=== PATIENT | female | born 1945 | race Caucasian/White ===

== ENCOUNTER 2016-04-28 09:46 | Outpatient (RCR) | payer MEDICARE, OTHER ==
[~2016-04-28 09:46] MED LIST: ACID REDUCER; AMLO10TA82 PO; ASP81TEC PO; BNZ20T PO; CALC480G PO; CYAN10007 PO; CYANOCOBALAMIN PO; DESV50TA PO; HCT25T PO; METO-272 PO; OLME20TA21 PO; OMEG-12 PO; OMEP20TA2 PO; OXYC-12 PO; PNT40TEC PO; ROSU10TA12 PO; VITAMIN B12 COMPLEX PO; VITAMIN D3 PO; [UNRECOGNIZED DRUG - OTHER] SL; vitamin D3
--- OUTSIDE RECORDS SUMMARY | 2016-04-28 09:50 | XMS REPORT | Continuity of Care Document ---
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 Medications Medication Dose Route Sig Days/Qty Instructions Order Date Discontinued Date Status Desvenlafaxine Succinate 50 Mg PO BEDTIME 08/05/12 Active Amlodipine Besylate (Norvasc 10 Mg) 1 Each PO DAILY 08/05/12 Discontinued Benazepril HCl 1 Each PO DAILY 08/05/12 01/16/13 Discontinued Metoprolol Succinate (Toprol Xl) 50 Mg PO BEDTIME 08/05/12 Active Rosuvastatin Calcium 1 Each PO DAILY 08/05/12 11/16/13 Discontinued Pantoprazole Sodium 1 Tab PO DAILY 30 Qty 08/05/12 10/11/12 Discontinued Omeprazole 20 Mg PO 10/11/12 01/16/13 Discontinued Hydrochlorothiazide 25 Mg PO DAILY 10/11/12 11/16/13 Discontinued [vitamin D3] 10/11/12 11/23/13 Discontinued Aspirin 81 Mg PO DAILY 10/11/12 11/16/13 Discontinued Olmesartan 1 Each PO DAILY 01/16/13 11/16/13 Discontinued [otc acid delicate fabrics presser] DAILY 01/16/13 02/06/13 Discontinued [place]-3/Dha/Epa/Fish Oil 1,000 Mg PO BEDTIME 11/16/13 Active Cyanocobalamin 1,000 Mcg PO DAILY 11/16/13 11/23/13 Discontinued [Siblingual B12] 325 Mcg SL DAILY 11/16/13 11/23/13 Discontinued Calcium Citrate 480 Gm PO DAILY 11/16/13 11/23/13 Discontinued [Vitamin D3] 1,200 Mg PO BEDTIME 11/23/13 Active [Cyanocobalamin SL] 325 Mcg PO BEDTIME 11/23/13 Active [Vitamin B12 Complex] 1 Tab PO BEDTIME 11/23/13 Active Oxycodone Hcl/Acetaminophen 1-2 Each PO Q4-6H PRN 35 Qty 11/23/13 Active Social History Social History Problem Response Recorded Date/Time Alcohol Use Denies Use 11/22/2013 6:30pm Recreational Drug Use No 11/22/2013 6:30pm Smoking Status Never a Smoker 11/22/2013 6:55pm Query Response Start Date Stop Date Smoking Status Never a Smoker Hospital Discharge Instructions No hospital discharge instructions. Plan of Care No plan of care. Functional Status No functional status results. Allergies, Adverse Reactions, Alerts Allergen Type Severity Reaction Status Last Updated No Known Drug Allergies Active 08/05/12 Immunizations Name Given Type Date of Pneumonia Vaccine 01/17/12 Historical Date of Influenza Vaccine 12/17/12 Historical Hepatitis A No Historical Hepatitis B No Historical Vital Signs Acute Vital Signs Vital Response Date/Time Temperature (Fahrenheit) 98.7 degrees F (97.6 - 99.5) Temperature (Calculated Celsius) 37.72734 degrees C (36.4 - 37.5) Temperature Source Temporal Pulse Rate (adult) 82 bpm (60 - 90) Respiratory Rate 18 bpm (12 - 24) O2 Sat by Pulse Oximetry 98 % (88 - 100) Blood Pressure 132/61 mm Hg Pain Pain Intensity 3 Height (Feet) 5 feet Height (Inches) 4.00 inches Height (Calculated Centimeters) 162.385937 cm Weight (Pounds) 219 pounds Weight (Calculated Grams) 25958.730 gm Weight (Calculated Kilograms) 99.330041 kilograms Calculated BMI 37.59 Results Test Source Date Result Interp. Ref. Range Comments Activated Partial Thromboplast Time August 05, 2012 2:46pm 27 SEC N 24-35 Alanine Aminotransferase (ALT/SGPT) November 16, 2013 11:10am 28 U/L N 0- 55 Albumin November 16, 2013 11:10am 3.7 G/DL N 3.2-4.5 Alkaline Phosphatase November 16, 2013 11:10am 65 U/L N 40-136 Amylase Level August 05, 2012 2:46pm 53 U/L N 25-115 Aspartate Amino Transf (AST/SGOT) November 16, 2013 11:10am 25 U/L N 5-34 BUN/Creatinine Ratio November 16, 2013 11:10am 19 - Basophils # (Auto) November 16, 2013 11:10am 0.1 10^3/uL N 0.0-0.1 Basophils (%) (Auto) November 16, 2013 11:10am 1 % N 0-10 Blood Urea Nitrogen November 16, 2013 11:10am 15 MG/DL N 7-18 Calcium Level November 16, 2013 11:10am 9.5 MG/DL N 8.5-10.1 Carbon Dioxide Level November 16, 2013 11:10am 23 MMOL/L N 21-32 Chloride Level November 16, 2013 11:10am 111 MMOL/L H 98-107 Creatine Kinase MB August 05, 2012 2:46pm 0.4 NG/ML N 0.0-3.6 Creatinine November 16, 2013 11:10am 0.79 MG/DL N 0.60-1.30 Eosinophils # (Auto) November 16, 2013 11:10am 0.1 10^3/uL N 0.0-0.3 Eosinophils (%) (Auto) November 16, 2013 11:10am 2 % N 0-10 Glucose Level November 16, 2013 11:10am 115 MG/DL H 70-105 Hematocrit November 16, 2013 11:10am 39 % N 35-52 Hemoglobin November 16, 2013 11:10am 12.9 G/DL N 11.5-16.0 Lipase August 05, 2012 2:46pm 235 U/L N 73-393 Lymphocytes # (Auto) November 16, 2013 11:10am 2.9 X 10^3 N 1.0-4.0 Lymphocytes (%) (Auto) November 16, 2013 11:10am 45 % H 12-44 Magnesium Level August 05, 2012 2:46pm 2.0 MG/DL N 1.8-2.4 Mean Corpuscular Hemoglobin November 16, 2013 11:10am 30 PG N 25-34 Mean Corpuscular Hemoglobin Concent November 16, 2013 11:10am 33 G/DL N 32 -36 Mean Corpuscular Volume November 16, 2013 11:10am 91 FL N 80-99 Mean Platelet Volume November 16, 2013 11:10am 10.2 FL N 7.4-10.4 Monocytes # (Auto) November 16, 2013 11:10am 0.4 X 10^3 N 0.0-1.0 Monocytes (%) (Auto) November 16, 2013 11:10am 7 % N 0-12 Myoglobin March 30, 2008 2:25pm 51 UG/L N 10-92 Has specimen been collected/obtained? Y Neutrophils # (Auto) November 16, 2013 11:10am 3.0 X 10^3 N 1.8-7.8 Neutrophils (%) (Auto) November 16, 2013 11:10am 46 % N 42-75 Platelet Count November 16, 2013 11:10am 301 10^3/uL N 130-400 Potassium Level November 16, 2013 11:10am 4.0 MMOL/L N 3.6-5.0 Prothrombin Time August 05, 2012 2:46pm 12.8 SEC N 12.2-14.7 Red Blood Count November 16, 2013 11:10am 4.30 10^6/uL L 4.35-5.85 Red Cell Distribution Width November 16, 2013 11:10am 14.6 % H 10.0-14.5 Sodium Level November 16, 2013 11:10am 144 MMOL/L N 135-145 Total Bilirubin November 16, 2013 11:10am 0.7 MG/DL N 0.1-1.0 Total Creatine Kinase August 05, 2012 2:46pm 107 U/L N 1-159 Total Protein November 16, 2013 11:10am 6.8 G/DL N 6.4-8.2 Troponin I August 05, 2012 2:46pm < 0.10 NG/ML 0.00-0.10 Urine Bacteria November 16, 2013 12:35pm NEGATIVE /HPF - Has specimen been collected/obtained? YSpecimen Description CLEAN CATCH Urine Bilirubin November 16, 2013 12:35pm 1+ H - ICTO TEST=NEG--- 1307 --- UR BILI previously reported as: 1+ * Urine Casts November 16, 2013 12:35pm NONE /LPF - Has specimen been collected/obtained? YSpecimen Description CLEAN CATCH Urine Clarity November 16, 2013 12:35pm SLIGHTLY CLOUDY - Has specimen been collected/obtained? YSpecimen Description CLEAN CATCH Urine Color November 16, 2013 12:35pm YELLOW - Has specimen been collected/obtained? YSpecimen Description CLEAN CATCH Urine Crystals November 16, 2013 12:35pm NONE /LPF - Has specimen been collected/obtained? YSpecimen Description CLEAN CATCH Urine Culture Indicated November 16, 2013 12:35pm NO - Has specimen been collected/obtained? YSpecimen Description CLEAN CATCH Urine Glucose (UA) November 16, 2013 12:35pm NEGATIVE - Has specimen been collected/obtained? YSpecimen Description CLEAN CATCH Urine Ketones November 16, 2013 12:35pm NEGATIVE - Has specimen been collected/obtained? YSpecimen Description CLEAN CATCH Urine Leukocyte Esterase November 16, 2013 12:35pm 1+ H - Has specimen been collected/obtained? YSpecimen Description CLEAN CATCH Urine Mucus November 16, 2013 12:35pm NEGATIVE /LPF - Has specimen been collected/obtained? YSpecimen Description CLEAN CATCH Urine Nitrite November 16, 2013 12:35pm NEGATIVE - Has specimen been collected/obtained? YSpecimen Description CLEAN CATCH Urine Protein November 16, 2013 12:35pm 1+ H - Has specimen been collected/obtained? YSpecimen Description CLEAN CATCH Urine RBC November 16, 2013 12:35pm NONE /HPF - Has specimen been collected/obtained? YSpecimen Description CLEAN CATCH Urine Specific [place] November 16, 2013 12:35pm 1.020 - Has specimen been collected/obtained? YSpecimen Description CLEAN CATCH Urine Squamous Epithelial Cells November 16, 2013 12:35pm 0-2 /HPF - Has specimen been collected/obtained? YSpecimen Description CLEAN CATCH Urine Urobilinogen November 16, 2013 12:35pm 4 MG/DL H - Has specimen been collected/obtained? YSpecimen Description CLEAN CATCH Urine WBC November 16, 2013 12:35pm RARE /HPF - Has specimen been collected/obtained? YSpecimen Description CLEAN CATCH Urine pH November 16, 2013 12:35pm 6 - Has specimen been collected/ obtained? YSpecimen Description CLEAN CATCH White Blood Count November 16, 2013 11:10am 6.5 10^3/uL N 4.3-11.0 Pathology Consult Specimen March 30, 2008 2:25pm See report - Has specimen been collected/obtained? Y Pro-B-Type Natriuretic Peptide August 05, 2012 2:46pm 38.5 PG/ML N -125 Lab Scanned Report March 30, 2008 1:19pm Referred Lab Report [id number] - Estimat Glomerular Filtration Rate November 16, 2013 11:10am > 60 - GFR INTERPRETIVE DATA UNITS FOR ESTIMATED GFR (eGFR): mL/min/1.73 M2 REFERENCE RANGE FOR ESTIMATED GFR (eGFR) eGFR NORMAL eGFR >60 MODERATELY DECREASED eGFR 30-59 SEVERLY DECREASED eGFR 15-29 KIDNEY FAILURE <15 (OR DIALYSIS) Creatine Kinase March 30, 2008 2:25pm 119 mg/dl N 21-140 Has specimen been collected/obtained? Y Urine RBC (Auto) November 16, 2013 12:35pm NEGATIVE - Has specimen been collected/obtained? YSpecimen Description CLEAN CATCH INR Comment August 05, 2012 2:46pm 1.0 N 0.8-1.4 INTERPRETIVE DATASUGGESTED THERAPEUTIC RANGE FOR INR'S: VENOUS THROMBOSIS, PULMONARY EMBOLISM, OR PREVENTION OF SYSTEMIC EMBOLISM (EG. IN ATRIAL FIBRILLATION): 2.0 - 3.0 MECHANICAL PROSTHETIC HEART VALVES: 2.5 - 3.5* *NOTE: INR'S UP TO 4.5 MAY BE NECESSARY IN SELECTED GROUPS OF HIGH RISK PATIENTS. [employer] CONSENSUS CONFERENCE ON ANTITHROMBOTIC THERAPY (2000). MRSA Screen Nasal November 16, 2013 10:54am MRSA not isolated Procedures Procedure Status Date Provider(s) Lumpectomy of breast with sentinel node biopsy completed 11/22/13 VIN HOFF MD Tracing only of electrocardiogram completed 11/16/13 VIN HOFF MD Encounters Encounter Location Date/Time Registered Clinic [facility] 11/16/13 10:06am Registered Clinic [facility] 11/13/13 2:16pm Registered [facility] 11/08/13 9:07am
[2016-04-28 10:21] LABS: BASOPHILS # (AUTO) 0.1 10^3/uL (0.0-0.1); BASOPHILS % (AUTO) 1 % (0-10); EOSINOPHILS # (AUTO) 0.1 10^3/uL (0.0-0.3); EOSINOPHILS % (AUTO) 3 % (0-10); LYMPHOCYTES # (AUTO) 2.5 X 10^3 (1.0-4.0); LYMPHOCYTES % (AUTO) 44 % (12-44); MEAN CORPUSCULAR HEMOGLOBIN 28 PG (25-34); MEAN CORPUSCULAR HGB CONC 32 G/DL (32-36); MEAN CORPUSCULAR VOLUME 90 FL (80-99); MEAN PLATELET VOLUME 9.6 FL (7.4-10.4); MONOCYTES # (AUTO) 0.4 X 10^3 (0.0-1.0); MONOCYTES % (AUTO) 7 % (0-12); NEUTROPHILS # (AUTO) 2.6 X 10^3 (1.8-7.8); NEUTROPHILS % (AUTO) 45 % (42-75); PLATELET COUNT 297 10^3/uL (130-400); RED BLOOD COUNT 4.15 10^6/uL (4.35-5.85); RED CELL DISTRIBUTION WIDTH 14.2 % (10.0-14.5); WHITE BLOOD COUNT 5.7 10^3/uL (4.3-11.0)
[2016-04-28 10:52] LABS: ALANINE AMINOTRANSFERASE 22 U/L (0-55); ALBUMIN 4.2 G/DL (3.2-4.5); ANION GAP 11 MMOL/L (5-14); ASPARTATE AMINO TRANSFERASE 24 U/L (5-34); BILIRUBIN,TOTAL 0.8 MG/DL (0.1-1.0); BLOOD UREA NITROGEN 13 MG/DL (7-18); BUN/CREATININE RATIO 15; CALCIUM 9.3 MG/DL (8.5-10.1); CARBON DIOXIDE 26 MMOL/L (21-32); CHLORIDE 105 MMOL/L (98-107); CREATININE SERUM 0.85 MG/DL (0.60-1.30); GFR ESTIMATED > 60; GLUCOSE 99 MG/DL (70-105); POTASSIUM 4.1 MMOL/L (3.6-5.0); SODIUM 142 MMOL/L (135-145)
== END 2016-07-27 | disposition home or self-care (01) ==
LOC: ONC 09:46
PROVIDERS: ATTEND Internal Medicine Hematology & Oncology
DX: C50.911 Malignant neoplasm of unspecified site of right female breast (principal); C50.912 Malignant neoplasm of unspecified site of left female breast; I10 Essential (primary) hypertension; E66.01 Morbid (severe) obesity due to excess calories; Z68.37 Body mass index [BMI] 37.0-37.9, adult; E78.5 Hyperlipidemia, unspecified; K21.9 Gastro-esophageal reflux disease without esophagitis; M19.90 Unspecified osteoarthritis, unspecified site; Z17.0 Estrogen receptor positive status [ER+]; Z90.11 Acquired absence of right breast and nipple; Z90.12 Acquired absence of left breast and nipple; Z79.899 Other long term (current) drug therapy
CPT/HCPCS: 36415; 80053; 85025; 99213

== ENCOUNTER 2016-09-22 05:36 | Outpatient (CLI) | payer MEDICARE, OTHER ==
[~2016-09-22] VITALS: Ht 162.6 cm; Wt 108.9 kg
[2016-09-22] MEDS ORDERED: HYDR25TA4 PO ×2 (15:45)
[2016-09-22] MEDS ORDERED: OMEG-126 PO ×2 (15:45)
[2016-09-22] MEDS ORDERED: ROSU10TA PO ×2 (15:45)
[2016-09-22] MEDS ORDERED: CHOL200014 PO ×2 (15:45)
[2016-09-22] MEDS ORDERED: LETR2.5T5 PO ×2 (15:45)
[2016-09-22] MEDS ORDERED: AMLO10TA2 PO ×2 (15:45)
[2016-09-22] MEDS ORDERED: METO-387 PO ×2 (15:45)
[2016-09-22] MEDS ORDERED: DESV100T16 PO ×2 (15:45)
[2016-09-22] MEDS ORDERED: CYAN50008 PO ×2 (15:45)
== END 2016-09-22 15:46 ==
LOC: PREOP 05:36
PROVIDERS: ATTEND Surgery
DX: Z01.818 Encounter for other preprocedural examination (principal); Z86.010 Personal history of colon polyps

== ENCOUNTER 2016-09-24 10:51 | Day surgery (SDC) | payer MEDICARE, OTHER ==
[~2016-09-24] VITALS: Ht 162.6 cm; Wt 108.9 kg
[~2016-09-24 10:51] MED LIST changes: +AMLO10TA2 PO; +CHOL200014 PO; +CYAN50008 PO; +DESV100T16 PO; +HYDR25TA4 PO; +LETR2.5T5 PO; +METO-270 PO; +OMEG-126 PO; +ROSU10TA PO
[2016-09-24] MEDS ORDERED: LIDOCAINE JELLY 2% (XYLOCAINE) 5 ML TUBE MM PRN (11:00)
[2016-09-24] MEDS ORDERED: NS IV 500 ML 500 ML IV PRN (11:15)
--- NOTE | 2016-09-24 11:23 | Conscious Sedation/ASA ---
Conscious Sedation Pre-Proced Time Reviewed: 11:15 ASA Class: 2 Airway Mallampati Classification: (wrangell appropriate class) I. II. III, IV Lungs Heart ASA score ASA 1: a normal healthy patient ASA 2: a patient with a mild systemic disease (mid diabetes, controlled hypertension, obesity ASA 3: a patient with a severe systemic disease that limits activity (angina , COPD, prior Myocardial infarction) ASA 4: a patient with an incapacitating disease that is a constant threat to life (CHF, renal failure) ASA 5: a moribund patient not expected to survive 24 hrs. (ruptured aneurysm) ASA 6: a declared brain patient whose organs are being harvested. For emergent operations, add the letter E after the classification Grade 3 Sedation Plan: Analgesia, Amnesia, Plan communicated to team members, Discussed options with patient/fam, Discussed risks with patient/fam Note The patient is an appropriate candidate to undergo the planned procedure, sedation, and anesthesia. The patient immediately re-assessed prior to indication. VIN HOFF MD Sep 24, 2016 11:23 am
--- NOTE | 2016-09-24 11:25 | Progress Note-Pre Operative ---
Pre-Operative Progress Note H&P Reviewed The H&P was reviewed, patient examined and no changes noted. Date Seen by Provider: Sep 24, 2016 Time Seen by Provider: 11:15 Date H&P Reviewed: Sep 24, 2016 Time H&P Reviewed: 11:15 Pre-Operative Diagnosis: hx polyps, personal hx cancer VIN HOFF MD Sep 24, 2016 11:24 am
[2016-09-24] MEDS ORDERED: morphine INJ 10 MG/ML 1ML (SYR OR VIAL) IV PRN (11:30)
[2016-09-24] MEDS ORDERED: ONDANSETRON 4 MG/2 ML (SDV) Z0FRAN IV PRN (11:30)
[2016-09-24] MEDS ORDERED: HYDROcodone/APAP 5 MG/325 MG (LORTAB) TAB PO PRN (11:30)
[2016-09-24] MEDS ORDERED: ACETAMINOPHEN 325 MG TABLET/CAPLET (TYLENOL) PO PRN (11:30)
[2016-09-24] MEDS ORDERED: fentaNYL INJECTION 100 MCG/2 ML AMP ONE ×2 (11:38)
[2016-09-24] MEDS ORDERED: MIDAZOLAM 2 MG/2 ML (VERSED) VIAL ONE ×5 (11:38→11:39)
[2016-09-24] MEDS ORDERED: LIDOCAINE JELLY 2% (XYLOCAINE) 5 ML TUBE ONE (11:39)
[2016-09-24] MEDS: fentaNYL INJECTION 100 MCG/2 ML AMP IVP PRN ×4 (11:47→11:58)
[2016-09-24] MEDS: MIDAZOLAM 2 MG/2 ML (VERSED) VIAL IVP PRN ×3 (11:48→11:55)
[2016-09-24 12:30] VITALS: BP 127/74
--- NOTE | 2016-09-24 12:42 | Progress Note-Post Operative ---
Post-Operative Progess Note Surgeon (s)/Geological Sample Tester (s) Surgeon VIN HOFF MD Geological Sample Tester: none Pre-Operative Diagnosis hx polyps, personal hx cancer Post-Operative Diagnosis chronic stage 1 ext and int hemorrhoids, moderate sigmoid diverticulosis. Procedure & Operative Findings Date of Procedure 09/24/16 Procedure Performed/Findings Colonoscopy Anesthesia Type CS Estimated Blood Loss Estimated blood loss (mL): minimal Specimens/Packing Specimens Removed none VIN HOFF MD Sep 24, 2016 12:41 pm
--- NOTE | 2016-09-24 12:45 | Discharge Inst-Surgical ---
D/C Lap Instructions-LUIS EDUARDO Follow Up 7-8 yrs Activity as tolerated No driving for 24 hours No [address] while on pain medications Incentive Spirometry use every 2 hours while awake High Fiber Diet 25g or more per day Avoid Alcohol, Caffeine, Spicy [place] and Acid foods. Drink 64 fluid oz or more of fluids per day. Symptoms to Report: Fever over 101 degree F, Nausea/Vomiting If any problems/questions: Contact your physician or go to Emergency Room VIN HOFF MD Sep 24, 2016 12:45 pm
[2016-09-24 13:00] VITALS: BP 134/81
[2016-09-24 13:10] VITALS: BP 134/81
--- NOTE | 2016-09-26 00:25 | OPERATIVE REPORT ---
PROCEDURE PHYSICIAN: VIN HFOF DATE OF PROCEDURE: 09/24/2016 ATTENDING PRIMARY CARE PHYSICIAN: Dr. Genoveva Cabrera. PREOPERATIVE DIAGNOSES: 1. History of colonic adenomatous polyp. 2. History of bilateral invasive ductal cancer. POSTOPERATIVE DIAGNOSES: 1. Chronic stage I external and internal hemorrhoids. 2. Moderate sigmoid diverticulosis. 3. The remainder of the colon was normal. PROCEDURE: Colonoscopy. SURGEON: Dr. Hoff. ANESTHESIA: Conscious sedation. ESTIMATED BLOOD LOSS: Minimal. FINDINGS: 1. Chronic stage I external and internal hemorrhoids, not actively edematous nor inflamed and no bleeding. 2. There was moderate sigmoid diverticulosis with no mucosal inflammatory changes to indicate any active diverticulitis. 3. The remainder of the colon was normal. There were no polyps identified. DISPOSITION: The patient tolerated the procedure well. Ms. Loretta Cruz is a 70-year-old female who we had initially seen in 2012 for screening colonoscopy. At that time, she reported in 2009 a polyp was detected of the cecum and found to be a tubular adenoma. She then had another colonoscopy by us where a polyp was identified in the sigmoid colon, which was a benign hyperplastic polyp. She was then seen by us in October 2013 for bilateral breast invasive ductal cancer. She underwent bilateral sentinel biopsies which were negative and then simple mastectomies. She is in need of a follow-up colonoscopy. At this time she is doing well and does not report any episodes of constipation nor diarrhea, as well as no red blood per rectum nor any dark tarry stools. The patient was brought to the endoscopy suite, laid in the left lateral decubitus position. After adequate IV pain and sedative medications and conscious sedation anesthesia, a digital rectal examination was performed. Mild chronic stage I external and internal hemorrhoids where identified but were not actively edematous nor inflamed and no bleeding. Normal sphincter tone was felt and there were no palpable masses. The endoscope was then intubated and the anus and rectum was insufflated. The endoscope was then advanced through the valves of the rectum with no polyps or any neoplasms identified. Through the sigmoid colon, a moderate sigmoid diverticulosis identified. There were no mucosal inflammatory changes to indicate any active diverticulitis. The endoscope was then advanced through the remainder of the descending, transverse, and ascending colon to the cecum. These segments were normal. There were no polyps or any neoplasms identified throughout the colon or rectum. The endoscope was then slowly withdrawn while taking a second look and suctioning of residual air with no additional findings. The patient tolerated the procedure well. We will recommend continued medical management with a high fiber diet with at least 25 grams of fiber per day, as well as at least 64 fluid ounces of water daily to promote soft stools on a daily basis. She does have a personal history of bilateral breast cancer; however, does not have a family history or personal history of colon cancer. This last colonoscopy did not show any polyps and from our standpoint, we feel that she is good for her next follow-up colonoscopy in approximately 7 to 8 years and even further if she is asymptomatic; however, sooner if she becomes symptomatic. Job ID: [id number] Dictated Date: 09/24/2016 12:14:51 Automatic Winder Operator Date: 09/26/2016 00:15:21 / [place]
--- OUTSIDE RECORDS SUMMARY | 2016-09-28 06:51 | XMS REPORT | Continuity of Care Document ---
Author Author [facility] Organization [facility] Address Unknown Phone Unavailable Allergies Active Description Code Type Severity Reaction Onset Reported/Identified Relationship to Patient Clinical Status Yes No Known Drug Allergies [id number] Drug Allergy Unknown N/ A 08/05/2012 Medications Problems Date Dx Coded Attending Type Code Diagnosis Diagnosed By 02/01/2014 DARON ZAVALA, HARRISON Quinonez Ot 611.72 02/06/2014 LEONIDAS ZAVALA, GOLDIE Macias Ot 174.9 03/28/2014 LEONIDAS ZAVALA, GOLDIE Macias Ot 174.9 03/28/2014 LEONIDAS ZAVALA, GOLDIE Macias Ot 174.9 04/04/2014 LEONIDAS ZAVALA, GOLDIE Macias Ot 174.9 04/05/2014 LEONIDAS ZAVALA, GOLDIE Macias Ot 174.9 05/16/2014 LEONIDAS ZAVALA, GOLDIE Macias Ot 174.9 05/16/2014 LEONIDAS ZAVALA, GOLDIE Macias Ot V86.0 07/03/2014 LEONIDAS ZAVALA, GOLDIE Macias Ot 174.9 07/03/2014 LEONIDAS ZAVALA, GOLDIE Macias Ot V86.0 09/17/2014 LEONIDAS ZAVALA, GOLDIE Macias Ot 174.9 09/17/2014 LEONIDAS ZAVALA, GOLDIE Macias Ot V86.0 09/17/2014 LEONIDAS ZAVALA, GOLDIE Macias Ot 174.9 09/17/2014 LEONIDAS ZAVALA, GOLDIE Macias Ot V86.0 09/17/2014 LEONIDAS ZAVALA, GOLDIE Macias Ot 174.9 09/17/2014 LEONIDAS ZAVALA, GOLDIE Macias Ot V86.0 09/24/2014 LEONIDAS ZAVALA, GOLDIE Macias Ot 174.9 09/24/2014 LEONIDAS ZAVALA, GOLDIE Macias Ot V86.0 09/25/2014 LEONIDAS ZAVALA, GOLDIE Macias Ot 174.9 09/25/2014 LEONIDAS ZAVALA, GOLDIE Macias Ot V86.0 11/12/2014 LEONIDAS ZAVALA, GOLDIE Macias Ot 174.9 11/12/2014 LEONIDAS ZAVALA, GOLDIE Macias Ot V86.0 12/18/2014 LEONIDAS ZAVALA, GOLDIE Macias Ot 174.9 12/18/2014 LEONIDAS ZAVALA, GOLDIE Macias Ot V86.0 01/10/2015 STANISLAW PARKS Ot R01.1 01/23/2015 KASEY STANISLAW [employer]ATE SECRETARY Ot R01.1 02/28/2015 KASEY STANISLAW [employer]PORATE SECRETARY Ot R01.1 03/11/2015 LEONIDAS ZAVALA, GOLDIE Gilberto Ot C50.911 03/11/2015 LEONIDAS ZAVALA, GOLDIE K Ot C50.912 03/11/2015 LEONIDAS ZAVALA, GOLDIE Gilberto Ot E66.01 03/11/2015 LEONIDAS ZAVALA, GOLDIE Gilberto Ot E78.5 03/11/2015 LEONIDAS ZAVALA, GOLDIE K Ot I10 03/11/2015 LEONIDAS ZAVALA, GOLDIE K Ot K21.9 03/11/2015 LEONIDAS ZAVALA, GOLDIE K Ot M19.90 03/11/2015 LEONIDAS ZAVALA, GOLDIE K Ot Z17.0 03/11/2015 LEONIDAS ZAVALA, GOLDIE K Ot Z68.37 03/11/2015 LEONIDAS ZAVALA, GOLDIE K Ot Z79.899 03/11/2015 LEONIDAS ZAVALA, GOLDIE K Ot Z90.11 03/11/2015 LEONIDAS ZAVALA, GOLDIE K Ot Z90.12 03/24/2015 LEONIDAS ZAVALA, GOLDIE K Ot C50.911 03/24/2015 LEONIDAS ZAVALA, GOLDIE K Ot C50.912 03/24/2015 LEONIDAS ZAVALA, GOLDIE K Ot E66.01 03/24/2015 LEONIDAS ZAVALA, GOLDIE Gilberto Ot E78.5 03/24/2015 LEONIDAS ZAVALA, GOLDIE K Ot I10 03/24/2015 LEONIDAS ZAVALA, GOLDIE K Ot K21.9 03/24/2015 LEONIDAS ZAVALA, GOLDIE K Ot M19.90 03/24/2015 LEONIDAS ZAVALA, GOLDIE K Ot Z17.0 03/24/2015 LEONIDAS ZAVALA, GOLDIE K Ot Z68.37 03/24/2015 LEONIDAS ZAVALA, GOLDIE K Ot Z79.899 03/24/2015 LEONIDAS ZAVALA, GOLDIE K Ot Z90.11 03/24/2015 LEONIDAS ZAVALA, GOLDIE K Ot Z90.12 03/25/2015 LEONIDAS ZAVALA, GOLDIE K Ot C50.911 03/25/2015 LEONIDAS ZAVALA, GOLDIE K Ot C50.912 03/25/2015 LEONIDAS ZAAVLA, GOLDIE K Ot E66.01 03/25/2015 LEONIDAS ZAVALA, GOLDIE K Ot E78.5 03/25/2015 LEONIDAS ZAVALA, GOLDIE K Ot I10 03/25/2015 LEONIDAS ZAVALA, GOLDIE K Ot K21.9 03/25/2015 LEONIDAS ZAVALA, GOLDIE K Ot M19.90 03/25/2015 LEONIDAS ZAVALA, GOLDIE K Ot Z17.0 03/25/2015 LEONIDAS ZAVALA, GOLDIE K Ot Z68.37 03/25/2015 LEONIDAS ZAVALA, GOLDIE K Ot Z79.899 03/25/2015 LEONIDAS ZAVALA, GOLDIE K Ot Z90.11 03/25/2015 LEONIDAS ZAVALA, GOLDIE K Ot Z90.12 03/27/2015 LEONIDAS ZAVALA, GOLDIE K Ot 174.9 03/27/2015 LEONIDAS ZAVALA, GOLDIE K Ot 272.4 03/27/2015 LEONIDAS ZAVALA, GOLDIE K Ot 278.01 03/27/2015 LEONIDAS ZAVALA, GOLDIE K Ot 530.81 03/27/2015 LEONIDAS ZAVALA, GOLDIE K Ot C50.911 03/27/2015 LEONIDAS ZAVALA, GOLDIE K Ot C50.912 03/27/2015 LEONIDAS ZAVALA, GOLDIE K Ot E66.01 03/27/2015 LEONIDAS ZAVALA, GOLDIE K Ot E78.5 03/27/2015 LEONIDAS ZAVALA, GOLDIE K Ot I10 03/27/2015 LEONIDAS ZAVALA, GOLDIE K Ot K21.9 03/27/2015 LEONIDAS ZAVALA, GOLDIE K Ot M19.90 03/27/2015 LEONIDAS ZAVALA, GOLDIE K Ot V45.71 03/27/2015 LOENIDAS ZAVALA, GOLDIE K Ot V58.69 03/27/2015 LEONIDAS ZAVALA, GOLDIE K Ot V85.37 03/27/2015 LEONIDAS ZAVALA, GOLDIE K Ot V86.0 03/27/2015 LEONIDAS ZAVALA, GOLDIE K Ot Z17.0 03/27/2015 LEONIDAS ZAVALA, GOLDIE K Ot Z68.37 03/27/2015 LEONIDAS ZAVALA, GOLDIE K Ot Z79.899 03/27/2015 LEONIDAS ZAVALA, GOLDIE K Ot Z90.11 03/27/2015 LEOINDAS ZAVALA, GOLDIE K Ot Z90.12 05/16/2015 LEONIDAS ZAVALA, GOLDIE K Ot C50.911 05/16/2015 LEONIDAS ZAVALA, GOLDIE K Ot C50.912 05/16/2015 LEONIDAS ZAVALA, GOLDIE K Ot E66.01 05/16/2015 LEONIDAS ZAVALA, GOLDIE K Ot E78.5 05/16/2015 LEONIDAS ZAVALA, GOLDIE K Ot I10 05/16/2015 LEONIDAS ZAVALA, GOLDIE K Ot K21.9 05/16/2015 LEONIDAS ZAVALA, GOLDIE K Ot M19.90 05/16/2015 LEONIDAS ZAVALA, GOLDIE K Ot Z17.0 05/16/2015 LEONIDAS ZAVALA, GOLDIE K Ot Z68.37 05/16/2015 LEONIDAS ZAVALA, GOLDIE K Ot Z79.899 05/16/2015 LEONIDAS ZAVALA, GOLDIE K Ot Z90.11 05/16/2015 LEONIDAS ZAVALA, GOLDIE K Ot Z90.12 06/17/2015 LEONIDAS ZAVALA, GOLDIE K Ot C50.911 06/17/2015 LEONIDAS ZAVALA, GOLDIE K Ot C50.912 06/17/2015 LEONIDAS ZAVALA, GOLDIE K Ot E66.01 06/17/2015 LOENIDAS ZAVALA, GOLDIE K Ot E78.5 06/17/2015 LEONIDAS ZAVALA, GOLDIE K Ot I10 06/17/2015 LEONIDAS ZAVALA, GOLDIE K Ot K21.9 06/17/2015 LEONIDAS ZAVALA, GOLDIE K Ot M19.90 06/17/2015 LEONIDAS ZAVALA, GOLDIE K Ot Z17.0 06/17/2015 LEONIDAS ZAVALA, GOLDIE K Ot Z68.37 06/17/2015 LEONIDAS ZAVALA, GOLDIE K Ot Z79.899 06/17/2015 LEONIDAS ZAVALA, GOLDIE K Ot Z90.11 06/17/2015 LEONIDAS ZAVALA, GOLDIE K Ot Z90.12 06/24/2015 LEONIDAS ZAVALA, GOLDIE K Ot C50.911 06/24/2015 LEONIDAS ZAVALA, GOLDIE K Ot C50.912 06/24/2015 LEONIDAS ZAVALA, GOLDIE K Ot E66.01 06/24/2015 LEONIDAS ZAVALA, GOLDIE K Ot E78.5 06/24/2015 LEONIDAS ZAVALA, GOLDIE K Ot I10 06/24/2015 LEONIDAS ZAVALA, GOLDIE K Ot K21.9 06/24/2015 LEONIDAS ZAVALA, GOLDIE K Ot M19.90 06/24/2015 LEONIDAS ZAVALA, GOLDIE K Ot Z17.0 06/24/2015 LEONIDAS ZAVALA, GOLDIE K Ot Z68.37 06/24/2015 LEONIDAS ZAVALA, GOLDIE K Ot Z79.899 06/24/2015 LEONIDAS ZAVALA, GOLDIE K Ot Z90.11 06/24/2015 LEONIDAS ZAVALA, GOLDIE K Ot Z90.12 06/26/2015 LEONIDAS ZAVALA, GOLDIE K Ot C50.911 06/26/2015 LEONIDAS ZAVALA, GOLDIE K Ot C50.912 06/26/2015 LEONIDAS ZAVALA, GOLDIE K Ot E66.01 06/26/2015 LEONIDAS ZAVALA, GOLDIE K Ot E78.5 06/26/2015 LEONIDAS ZAVALA, GOLDIE K Ot I10 06/26/2015 LEONIDAS ZAVALA, GOLDIE Macias Ot K21.9 06/26/2015 LEONIDAS ZAVALA, GOLDIE Macias Ot M19.90 06/26/2015 LEONIDAS ZAVALA, GOLDIE Macias Ot Z17.0 06/26/2015 LEONIDAS ZAVALA, GOLDIE Macias Ot Z68.37 06/26/2015 LEONIDAS ZAVALA, GOLDIE Macias Ot Z79.899 06/26/2015 LEONIDAS ZAVALA, GOLDIE Macias Ot Z90.11 06/26/2015 LEONIDAS ZAVALA, GOLDIE Macias Ot Z90.12 06/26/2015 LEONIDAS ZAVALA, GOLDIE Macias Ot C50.911 06/26/2015 LEONIDAS ZAVALA, GOLDIE Macias Ot C50.912 06/26/2015 LEONIDAS ZAVALA, GOLDIE Macias Ot E66.01 06/26/2015 LEONIDAS ZAVALA, GOLDIE Macias Ot E78.5 06/26/2015 LEONIDAS ZAVALA, GOLDIE Macias Ot I10 06/26/2015 LEONIDAS ZAVALA, GOLDIE Macias Ot K21.9 06/26/2015 LEONIDAS ZAVALA, GOLDIE Macias Ot M19.90 06/26/2015 LEONIDAS ZAVALA, GOLDIE Macias Ot Z17.0 06/26/2015 LEONIDAS ZAVALA, GOLDIE Macias Ot Z68.37 06/26/2015 LEONIDAS ZAVALA, GOLDIE Macias Ot Z79.899 06/26/2015 LEONIDAS ZAVALA, GOLDIE Macias Ot Z90.11 06/26/2015 LEONIDAS ZAVALA, GOLDIE Macias Ot Z90.12 08/11/2015 LEONIDAS ZAVALA, GOLDIE Macias Ot C50.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 NEOPLASM OF UNSP SITE OF RIGHT 08/11/2015 LEONIDAS ZAVALA, GOLDIE Macias Ot C50.912 MALIGNANT NEOPLASM OF UNSPECIFIED SITE O 08/11/2015 LEONIDAS ZAVALA, GOLDIE Macias Ot E66.01 MORBID (SEVERE) OBESITY DUE TO EXCESS CA 08/11/2015 LEONIDAS ZAVALA, GOLDIE Macias Ot E78.5 HYPERLIPIDEMIA, UNSPECIFIED 08/11/2015 LEONIDAS ZAVALA, GOLDIE Macias Ot I10 ESSENTIAL (PRIMARY) HYPERTENSION 08/11/2015 LEONIDAS ZAVALA, GOLDIE Macias Ot K21.9 GASTRO-ESOPHAGEAL REFLUX DISEASE WITHOUT 08/11/2015 LEONIDAS ZAVALA, GOLDIE Macias Ot M19.90 UNSPECIFIED OSTEOARTHRITIS, UNSPECIFIED 08/11/2015 LEONIDAS ZAVALA, GOLDIE Macias Ot Z17.0 ESTROGEN RECEPTOR POSITIVE STATUS [ER+] 08/11/2015 LEONIDAS ZAVALA, GOLDIE Macias Ot Z68.37 BODY MASS INDEX (BMI) 37.0-37.9, ADULT 08/11/2015 LEONIDAS ZAVALA, GOLDIE Macias Ot Z79.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 (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 08/11/2015 GOLDIE LAUREN MD, Ot Z90.11 ACQUIRED ABSENCE OF RIGHT BREAST AND NIP 08/11/2015 GOLDIE LAUREN MD, Ot Z90.12 ACQUIRED ABSENCE OF LEFT BREAST AND NIPP 09/16/2015 GOLDIE LAUREN MD, Ot C50.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 NEOPLASM OF UNSP SITE OF RIGHT 09/16/2015 GOLDIE LAUREN MD, Ot C50.912 MALIGNANT NEOPLASM OF UNSPECIFIED SITE O 09/16/2015 GOLDIE LAUREN MD, Ot E66.01 MORBID (SEVERE) OBESITY DUE TO EXCESS CA 09/16/2015 GOLDIE LAUREN MD, Ot E78.5 HYPERLIPIDEMIA, UNSPECIFIED 09/16/2015 GOLDIE LAUREN MD, Ot I10 ESSENTIAL (PRIMARY) HYPERTENSION 09/16/2015 GOLDIE LAUREN MD, Ot K21.9 GASTRO-ESOPHAGEAL REFLUX DISEASE WITHOUT 09/16/2015 GOLDIE LAUREN MD, Ot M19.90 UNSPECIFIED OSTEOARTHRITIS, UNSPECIFIED 09/16/2015 GOLDIE LAUREN MD, Ot Z17.0 ESTROGEN RECEPTOR POSITIVE STATUS [ER+] 09/16/2015 GOLDIE LAUREN MD, Ot Z68.37 BODY MASS INDEX (BMI) 37.0-37.9, ADULT 09/16/2015 GOLDIE LAUREN MD, Ot Z79.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 DYEING 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 (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 09/16/2015 GOLDIE LAUREN MD, Ot Z90.11 ACQUIRED ABSENCE OF RIGHT BREAST AND NIP 09/16/2015 GOLDIE LAUREN MD, Ot Z90.12 ACQUIRED ABSENCE OF LEFT BREAST AND NIPP 09/23/2015 GOLDIE LAUREN MD, Ot C50.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 NEOPLASM OF UNSP SITE OF RIGHT 09/23/2015 GOLDIE LAUREN MD, Ot C50.912 MALIGNANT NEOPLASM OF UNSPECIFIED SITE O 09/23/2015 GOLDIE LAUREN MD, Ot E66.01 MORBID (SEVERE) OBESITY DUE TO EXCESS CA 09/23/2015 GOLDIE LAUREN MD, Ot E78.5 HYPERLIPIDEMIA, UNSPECIFIED 09/23/2015 GOLDIE LAUREN MD Ot I10 ESSENTIAL (PRIMARY) HYPERTENSION 09/23/2015 GOLDIE LAUREN MD, Ot K21.9 GASTRO-ESOPHAGEAL REFLUX DISEASE WITHOUT 09/23/2015 GOLDIE LAUREN MD Ot M19.90 UNSPECIFIED OSTEOARTHRITIS, UNSPECIFIED 09/23/2015 GOLDIE LAUREN MD, Ot Z17.0 ESTROGEN RECEPTOR POSITIVE STATUS [ER+] 09/23/2015 GOLDIE LAUREN MD, Ot Z68.37 BODY MASS INDEX (BMI) 37.0-37.9, ADULT 09/23/2015 GOLDIE LAUREN MD, Ot Z79.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 DYEING 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 (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 09/23/2015 GOLDIE LAUREN MD, Ot Z90.11 ACQUIRED ABSENCE OF RIGHT BREAST AND NIP 09/23/2015 GOLDIE LAUREN MD Ot Z90.12 ACQUIRED ABSENCE OF LEFT BREAST AND NIPP 09/24/2015 GOLDIE LAUREN MD, Ot C50.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 NEOPLASM OF UNSP SITE OF RIGHT 09/24/2015 GOLDIE LAUREN MD, Ot C50.912 MALIGNANT NEOPLASM OF UNSPECIFIED SITE O 09/24/2015 GOLDIE LAUREN MD, Ot E66.01 MORBID (SEVERE) OBESITY DUE TO EXCESS CA 09/24/2015 GOLDIE LAUREN MD, Ot E78.5 HYPERLIPIDEMIA, UNSPECIFIED 09/24/2015 GOLDIE LAUREN MD Ot I10 ESSENTIAL (PRIMARY) HYPERTENSION 09/24/2015 GOLDIE LAUREN MD, Ot K21.9 GASTRO-ESOPHAGEAL REFLUX DISEASE WITHOUT 09/24/2015 GOLDIE LAUREN MD Ot M19.90 UNSPECIFIED OSTEOARTHRITIS, UNSPECIFIED 09/24/2015 GOLDIE LAUREN MD Ot Z17.0 ESTROGEN RECEPTOR POSITIVE STATUS [ER+] 09/24/2015 GOLDIE LAUREN MD, Ot Z68.37 BODY MASS INDEX (BMI) 37.0-37.9, ADULT 09/24/2015 GOLDIE LAUREN MD, Ot Z79.899 OTHER SKILLED NURSING (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 09/24/2015 GOLDIE LAUREN MD, Ot Z90.11 ACQUIRED ABSENCE OF RIGHT BREAST AND NIP 09/24/2015 GOLDIE LAUREN MD Ot Z90.12 ACQUIRED ABSENCE OF LEFT BREAST AND NIPP 10/15/2015 GOLDIE LAUREN MD, Ot C50.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 NEOPLASM OF UNSP SITE OF RIGHT 10/15/2015 GOLDIE LAUREN MD, Ot C50.912 MALIGNANT NEOPLASM OF UNSPECIFIED SITE O 10/15/2015 GOLDIE LAUREN MD Ot E66.01 MORBID (SEVERE) OBESITY DUE TO EXCESS CA 10/15/2015 GOLDIE LAUREN MD Ot E78.5 HYPERLIPIDEMIA, UNSPECIFIED 10/15/2015 GOLDIE LAUREN MD Ot I10 ESSENTIAL (PRIMARY) HYPERTENSION 10/15/2015 GOLDIE LAUREN MD Ot K21.9 GASTRO-ESOPHAGEAL REFLUX DISEASE WITHOUT 10/15/2015 GOLDIE LAUREN MD, Ot M19.90 UNSPECIFIED OSTEOARTHRITIS, UNSPECIFIED 10/15/2015 GOLDIE LAUREN MD, Ot Z17.0 ESTROGEN RECEPTOR POSITIVE STATUS [ER+] 10/15/2015 GOLDIE LAUREN MD, Ot Z68.37 BODY MASS INDEX (BMI) 37.0-37.9, ADULT 10/15/2015 GOLDIE LAUREN MD, Ot Z79.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 DYEING 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 (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 10/15/2015 GOLDIE LAUREN MD, Ot Z90.11 ACQUIRED ABSENCE OF RIGHT BREAST AND NIP 10/15/2015 GOLDIE LAUREN MD, Ot Z90.12 ACQUIRED ABSENCE OF LEFT BREAST AND NIPP 10/23/2015 GOLDIE LAUREN MD, Ot C50.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 NEOPLASM OF UNSP SITE OF RIGHT 10/23/2015 GOLDIE LAUREN MD, Ot C50.912 MALIGNANT NEOPLASM OF UNSPECIFIED SITE O 10/23/2015 GOLDIE LAUREN MD, Ot E66.01 MORBID (SEVERE) OBESITY DUE TO EXCESS CA 10/23/2015 GOLDIE LAUREN MD, Ot E78.5 HYPERLIPIDEMIA, UNSPECIFIED 10/23/2015 GOLDIE LAUREN MD Ot I10 ESSENTIAL (PRIMARY) HYPERTENSION 10/23/2015 GOLDIE LAURNE MD, Ot K21.9 GASTRO-ESOPHAGEAL REFLUX DISEASE WITHOUT 10/23/2015 GOLDIE LAUREN MD, Ot M19.90 UNSPECIFIED OSTEOARTHRITIS, UNSPECIFIED 10/23/2015 GOLDIE LAUREN MD, Ot Z17.0 ESTROGEN RECEPTOR POSITIVE STATUS [ER+] 10/23/2015 GOLDIE LAUREN MD, Ot Z68.37 BODY MASS INDEX (BMI) 37.0-37.9, ADULT 10/23/2015 GOLDIE LAUREN MD, Ot Z79.899 OTHER SKILLED NURSING (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 10/23/2015 GOLDIE LAUREN MD, Ot Z90.11 ACQUIRED ABSENCE OF RIGHT BREAST AND NIP 10/23/2015 GOLDIE LAUREN MD, Ot Z90.12 ACQUIRED ABSENCE OF LEFT BREAST AND NIPP 12/11/2015 GOLDIE LAUREN MD, Ot C50.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 NEOPLASM OF UNSP SITE OF RIGHT 12/11/2015 GOLDIE LAUREN MD, Ot C50.912 MALIGNANT NEOPLASM OF UNSPECIFIED SITE O 12/11/2015 GOLDIE LAUREN MD, Ot E66.01 MORBID (SEVERE) OBESITY DUE TO EXCESS CA 12/11/2015 LEONIDAS MD, GOLDIE K Ot E78.5 HYPERLIPIDEMIA, UNSPECIFIED 12/11/2015 GOLDIE LAUREN MD Ot I10 ESSENTIAL (PRIMARY) HYPERTENSION 12/11/2015 GOLDIE LAUREN MD, Ot K21.9 GASTRO-ESOPHAGEAL REFLUX DISEASE WITHOUT 12/11/2015 GOLDIE LAUREN MD, Ot M19.90 UNSPECIFIED OSTEOARTHRITIS, UNSPECIFIED 12/11/2015 GOLDIE LAUREN MD Ot Z17.0 ESTROGEN RECEPTOR POSITIVE STATUS [ER+] 12/11/2015 GOLDIE LAUREN MD, Ot Z68.37 BODY MASS INDEX (BMI) 37.0-37.9, ADULT 12/11/2015 GOLDIE LAUREN MD, Ot Z79.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 DYEING 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 (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 12/11/2015 GOLDIE LAUREN MD, Ot Z90.11 ACQUIRED ABSENCE OF RIGHT BREAST AND NIP 12/11/2015 GOLDIE LAUREN MD, Ot Z90.12 ACQUIRED ABSENCE OF LEFT BREAST AND NIPP 01/20/2016 GOLDIE LAUREN MD, Ot C50.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 NEOPLASM OF UNSP SITE OF RIGHT 01/20/2016 GOLDIE LAUREN MD, Ot C50.912 MALIGNANT NEOPLASM OF UNSPECIFIED SITE O 01/20/2016 GOLDIE LAUREN MD Ot E66.01 MORBID (SEVERE) OBESITY DUE TO EXCESS CA 01/20/2016 GOLDIE LAUREN MD, Ot E78.5 HYPERLIPIDEMIA, UNSPECIFIED 01/20/2016 GOLDIE LAUREN MD, Ot I10 ESSENTIAL (PRIMARY) HYPERTENSION 01/20/2016 GOLDIE LAUREN MD, Ot K21.9 GASTRO-ESOPHAGEAL REFLUX DISEASE WITHOUT 01/20/2016 GOLDIE LAUREN MD, Ot M19.90 UNSPECIFIED OSTEOARTHRITIS, UNSPECIFIED 01/20/2016 GOLDIE LAUREN MD, Ot Z17.0 ESTROGEN RECEPTOR POSITIVE STATUS [ER+] 01/20/2016 GOLDIE LAUREN MD, Ot Z68.37 BODY MASS INDEX (BMI) 37.0-37.9, ADULT 01/20/2016 GOLDIE LAUREN MD, Ot Z79.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 (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 01/20/2016 GOLDIE LAUREN MD, Ot Z90.11 ACQUIRED ABSENCE OF RIGHT BREAST AND NIP 01/20/2016 GOLDIE LAUREN MD, Ot Z90.12 ACQUIRED ABSENCE OF LEFT BREAST AND NIPP 01/21/2016 GOLDIE LAUREN MD, Ot C50.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 NEOPLASM OF UNSP SITE OF RIGHT 01/21/2016 GOLDIE LAUREN MD, Ot C50.912 MALIGNANT NEOPLASM OF UNSPECIFIED SITE O 01/21/2016 GOLDIE LAUREN MD, Ot E66.01 MORBID (SEVERE) OBESITY DUE TO EXCESS CA 01/21/2016 GOLDIE LAUREN MD, Ot E78.5 HYPERLIPIDEMIA, UNSPECIFIED 01/21/2016 GOLDIE LAUREN MD Ot I10 ESSENTIAL (PRIMARY) HYPERTENSION 01/21/2016 GOLDIE LAUREN MD, Ot K21.9 GASTRO-ESOPHAGEAL REFLUX DISEASE WITHOUT 01/21/2016 GOLDIE LAUREN MD, Ot M19.90 UNSPECIFIED OSTEOARTHRITIS, UNSPECIFIED 01/21/2016 GOLDIE LAUREN MD, Ot Z17.0 ESTROGEN RECEPTOR POSITIVE STATUS [ER+] 01/21/2016 GOLDIE LAUREN MD, Ot Z68.37 BODY MASS INDEX (BMI) 37.0-37.9, ADULT 01/21/2016 GOLDIE LAUREN MD, Ot Z79.899 OTHER SKILLED NURSING (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 01/21/2016 GOLDIE LAUREN MD, Ot Z90.11 ACQUIRED ABSENCE OF RIGHT BREAST AND NIP 01/21/2016 GOLDIE LAUREN MD, Ot Z90.12 ACQUIRED ABSENCE OF LEFT BREAST AND NIPP 04/29/2016 GOLDIE LAUREN MD, Ot C50.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 NEOPLASM OF UNSP SITE OF RIGHT 04/29/2016 GOLDIE LAUREN MD, Ot C50.912 MALIGNANT NEOPLASM OF UNSPECIFIED SITE O 04/29/2016 GOLDIE LAUREN MD, Ot E66.01 MORBID (SEVERE) OBESITY DUE TO EXCESS CA 04/29/2016 GOLDIE LAUREN MD, Ot E78.5 HYPERLIPIDEMIA, UNSPECIFIED 04/29/2016 GOLDIE LAUREN MD Ot I10 ESSENTIAL (PRIMARY) HYPERTENSION 04/29/2016 GOLDIE LAUREN MD, Ot K21.9 GASTRO-ESOPHAGEAL REFLUX DISEASE WITHOUT 04/29/2016 GOLDIE LAUREN MD, Ot M19.90 UNSPECIFIED OSTEOARTHRITIS, UNSPECIFIED 04/29/2016 GOLDIE LAUREN MD Ot Z17.0 ESTROGEN RECEPTOR POSITIVE STATUS [ER+] 04/29/2016 GOLDIE LAUREN MD, Ot Z68.37 BODY MASS INDEX (BMI) 37.0-37.9, ADULT 04/29/2016 GOLDIE LAUREN MD, Ot Z79.899 OTHER SKILLED NURSING (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 04/29/2016 GOLDIE LAUREN MD Ot Z90.11 ACQUIRED ABSENCE OF RIGHT BREAST AND NIP 04/29/2016 GOLDIE LAUREN MD Ot Z90.12 ACQUIRED ABSENCE OF LEFT BREAST AND NIPP 06/04/2016 GOLDIE LAUREN MD, Ot C50.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 NEOPLASM OF UNSP SITE OF RIGHT 06/04/2016 GOLDIE LAUREN MD, Ot C50.912 MALIGNANT NEOPLASM OF UNSPECIFIED SITE O 06/04/2016 GOLDIE LAUREN MD Ot E66.01 MORBID (SEVERE) OBESITY DUE TO EXCESS CA 06/04/2016 GOLDIE LAUREN MD Ot E78.5 HYPERLIPIDEMIA, UNSPECIFIED 06/04/2016 GOLDIE LAUREN MD Ot I10 ESSENTIAL (PRIMARY) HYPERTENSION 06/04/2016 GOLDIE LAUREN MD, Ot K21.9 GASTRO-ESOPHAGEAL REFLUX DISEASE WITHOUT 06/04/2016 GOLDIE LAUREN MD, Ot M19.90 UNSPECIFIED OSTEOARTHRITIS, UNSPECIFIED 06/04/2016 GOLDIE LAUREN MD, Ot Z17.0 ESTROGEN RECEPTOR POSITIVE STATUS [ER+] 06/04/2016 GOLDIE LAUREN MD, Ot Z68.37 BODY MASS INDEX (BMI) 37.0-37.9, ADULT 06/04/2016 GOLDIE LAUREN MD, Ot Z79.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 DYEING 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 (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 06/04/2016 GOLDIE LAUREN MD Ot Z90.11 ACQUIRED ABSENCE OF RIGHT BREAST AND NIP 06/04/2016 GOLDIE LAUREN MD, Ot Z90.12 ACQUIRED ABSENCE OF LEFT BREAST AND NIPP 07/27/2016 GOLDIE LAUREN MD, Ot C50.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 NEOPLASM OF UNSP SITE OF RIGHT 07/27/2016 GOLDIE LAUREN MD, Ot C50.912 MALIGNANT NEOPLASM OF UNSPECIFIED SITE O 07/27/2016 GOLDIE LAUREN MD, Ot E66.01 MORBID (SEVERE) OBESITY DUE TO EXCESS CA 07/27/2016 GOLDIE LAUREN MD, Ot E78.5 HYPERLIPIDEMIA, UNSPECIFIED 07/27/2016 GOLDIE LAUREN MD Ot I10 ESSENTIAL (PRIMARY) HYPERTENSION 07/27/2016 GOLDIE LAUREN MD, Ot K21.9 GASTRO-ESOPHAGEAL REFLUX DISEASE WITHOUT 07/27/2016 GOLDIE LAUREN MD, Ot M19.90 UNSPECIFIED OSTEOARTHRITIS, UNSPECIFIED 07/27/2016 GOLDIE LAUREN MD, Ot 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 Visit Date/Time Discharge Status Pt. Type Provider Facility Loc./Unit Complaint [id number] 09/24/2016 10:51:00 2016 13:10:00 DIS Outpatient VIN HOFF MD [facility] ENDO HISTORY OF POLYPS [id number] 09/22/2016 05:36:00 2016 15:46:00 DIS Outpatient VIN HOFF MD [facility] PREOP COLONOSCOPY [id number] 04/28/2016 09:46:00 2016 00:01:00 DIS Outpatient GOLDIE LAUREN MD [facility] ONC [id number] 06/25/2015 13:53:00 2015 00:01:00 DIS Outpatient GOLDIE LAUREN MD [facility] ONC [id number] 03/26/2015 13:54:00 2015 00:01:00 DIS Outpatient GOLDIE LAUREN MD [facility] ONC [id number] 12/24/2014 09:25:00 2015 00:01:00 DIS Outpatient GOLDIE LAUREN MD [facility] ONC [id number] 01/03/2015 10:09:00 2014 23:59:59 CLS Outpatient STANISLAW PARKS [facility] CARD [id number] 09/24/2014 08:49:00 2014 00:01:00 DIS Outpatient GOLDIE LAUREN MD [facility] ONC [id number] 06/27/2014 09:47:00 2014 00:01:00 DIS Outpatient GOLDIE LAUREN MD [facility] ONC [id number] 01/03/2014 12:55:00 2013 00:01:00 DIS Outpatient GOLDIE LAUREN MD [facility] ONC [id number] 11/22/2013 07:44:00 2013 13:10:00 DIS Outpatient [id number] 11/16/2013 10:06:00 2013 23:59:59 CLS Outpatient [id number] 11/13/2013 14:16:00 2013 23:59:59 CLS Outpatient [id number] 10/30/2013 08:47:00 2013 23:59:59 CLS Outpatient HARRISON NERI MD [facility] RAD [id number] 10/22/2013 08:45:00 2013 23:59:59 CLS Outpatient [id number] 10/03/2013 08:42:00 2013 23:59:59 CLS Outpatient [id number] 02/06/2013 07:29:00 2012 23:59:59 CLS Outpatient [id number] 01/16/2013 12:42:00 2012 16:15:00 DIS Outpatient [id number] 01/11/2013 07:12:00 2012 23:59:59 CLS Outpatient [id number] 10/11/2012 08:42:00 2012 11:25:00 DIS Outpatient [id number] 10/06/2012 09:07:00 2012 23:59:59 CLS Outpatient [id number] 08/31/2012 08:55:00 2012 23:59:59 CLS Outpatient [id number] 08/05/2012 14:30:00 2012 15:58:00 DIS Emergency [id number] 07/28/2016 00:14:00 PEN Preadmit GOLDIE LAUREN MD [facility] ONC [id number] 10/22/2015 14:55:00 ACT Outpatient GOLDIE LAUREN MD [facility] ONC
== END 2016-09-24 13:10 | disposition home or self-care (01) ==
LOC: ENDO 10:51
PROVIDERS: ATTEND Surgery
DX: Z12.11 Encounter for screening for malignant neoplasm of colon (principal); K57.30 Diverticulosis of large intestine without perforation or abscess without bleeding; K64.0 First degree hemorrhoids; Z86.010 Personal history of colon polyps; Z85.3 Personal history of malignant neoplasm of breast; I10 Essential (primary) hypertension; E78.00 Pure hypercholesterolemia, unspecified; Z79.899 Other long term (current) drug therapy

== ENCOUNTER → 2016-10-26 | Outpatient (CLI) | payer MEDICARE, OTHER ==
--- NOTE | 2016-10-26 11:01 | Diagnostic Imaging Report ---
EXAMINATION: Left lower extremity duplex venous ultrasound. TECHNIQUE: DVT protocol. Multiple sonographic images with color Doppler and waveform interrogation were performed of the left lower extremity veins with compression and augmentation maneuvers. INDICATION: Left leg pain. FINDINGS: The left lower extremity veins from the groin to below the knee veins were examined with normal color-flow, compressibility and waveform demonstrated. IMPRESSION: No evidence of DVT in the left lower extremity. Dictated by: Dictated on workstation # [id number]
== END ==
LOC: RAD 10:13
PROVIDERS: ATTEND Nurse Practitioner Family
DX: M79.605 Pain in left leg (principal)

== ENCOUNTER 2016-12-21 13:25 | Outpatient (RCR) | payer MEDICARE, OTHER ==
[~2016-12-21 13:25] MED LIST changes: -METO-270 PO; +METO-387 PO
[2016-12-21 13:38] LABS: BASOPHILS # (AUTO) 0.1 10^3/uL (0.0-0.1); BASOPHILS % (AUTO) 1 % (0-10); EOSINOPHILS % (AUTO) 0 % (0-10); HEMATOCRIT 38 % (35-52); HEMOGLOBIN 12.2 G/DL (11.5-16.0); LYMPHOCYTES # (AUTO) 3.1 X 10^3 (1.0-4.0); LYMPHOCYTES % (AUTO) 47 % (12-44); MEAN CORPUSCULAR HEMOGLOBIN 28 PG (25-34); MEAN CORPUSCULAR HGB CONC 32 G/DL (32-36); MEAN CORPUSCULAR VOLUME 87 FL (80-99); MEAN PLATELET VOLUME 9.6 FL (7.4-10.4); MONOCYTES # (AUTO) 0.5 X 10^3 (0.0-1.0); MONOCYTES % (AUTO) 7 % (0-12); NEUTROPHILS # (AUTO) 2.9 X 10^3 (1.8-7.8); NEUTROPHILS % (AUTO) 44 % (42-75); PLATELET COUNT 337 10^3/uL (130-400); RED BLOOD COUNT 4.38 10^6/uL (4.35-5.85); RED CELL DISTRIBUTION WIDTH 14.7 % (10.0-14.5); WHITE BLOOD COUNT 6.6 10^3/uL (4.3-11.0)
[2016-12-21 13:58] LABS: ALANINE AMINOTRANSFERASE 29 U/L (0-55); ALBUMIN 4.2 GM/DL (3.2-4.5); ALKALINE PHOSPHATASE 55 U/L (40-136); BILIRUBIN,TOTAL 0.5 MG/DL (0.1-1.0); BUN/CREATININE RATIO 17; CALCIUM 9.6 MG/DL (8.5-10.1); CARBON DIOXIDE 27 MMOL/L (21-32); CHLORIDE 105 MMOL/L (98-107); CREATININE SERUM 0.81 MG/DL (0.60-1.30); GFR ESTIMATED > 60; GLUCOSE 97 MG/DL (70-105); MAGNESIUM 1.9 MG/DL (1.8-2.4); POTASSIUM 3.5 MMOL/L (3.6-5.0); SODIUM 141 MMOL/L (135-145); TOTAL PROTEIN 7.4 GM/DL (6.4-8.2)
== END 2017-03-21 | disposition home or self-care (01) ==
LOC: ONC 13:25
PROVIDERS: ATTEND Internal Medicine Hematology & Oncology
DX: C50.911 Malignant neoplasm of unspecified site of right female breast (principal); C50.912 Malignant neoplasm of unspecified site of left female breast; I10 Essential (primary) hypertension; E66.01 Morbid (severe) obesity due to excess calories; Z68.41 Body mass index [BMI] 40.0-44.9, adult; E78.5 Hyperlipidemia, unspecified; K21.9 Gastro-esophageal reflux disease without esophagitis; M19.90 Unspecified osteoarthritis, unspecified site; Z17.0 Estrogen receptor positive status [ER+]; Z90.11 Acquired absence of right breast and nipple; Z90.12 Acquired absence of left breast and nipple; Z79.899 Other long term (current) drug therapy
CPT/HCPCS: 36415; 80053; 83735; 85025; 99213

== ENCOUNTER → 2017-07-25 | Outpatient (CLI) | payer MEDICARE, OTHER ==
[~2017-07-25] MED LIST changes: +IOHEXOL 350 MG/ML 100 ML (OMNIPAQUE 350) VIAL IV ONE; +NS 250 ML (IVPB) BAG IV ONE
--- NOTE | 2017-07-25 10:54 | Diagnostic Imaging Report ---
PROCEDURE: CT abdomen and pelvis with contrast. TECHNIQUE: Multiple contiguous axial images were obtained through the abdomen and pelvis after administration of intravenous contrast. INDICATION: Abdominal pain. There is no focal hepatic or splenic lesion identified. Surgical changes are seen at the level of stomach. Pancreas, adrenal glands and kidneys are also unremarkable. Gallbladder surgically absent. There is no free fluid in the abdomen and pelvis. No pathologic abdominal adenopathy is seen. There is no evidence of appendiceal inflammation. There are numerous diverticula in the left colon without significant pericolonic edema or inflammation. There is no pelvic free fluid. Partially opacified urinary bladder is unremarkable in appearance. There is mild diffuse lumbar spondylosis. IMPRESSION: No acute abnormality seen in the abdomen or pelvis. Dictated by: Dictated on workstation # [id number]
== END ==
LOC: RAD 09:39
PROVIDERS: ATTEND Internal Medicine Hematology & Oncology
DX: K57.53 Diverticulitis of both small and large intestine without perforation or abscess with bleeding (principal); C50.111 Malignant neoplasm of central portion of right female breast
CPT/HCPCS: 74177

== ENCOUNTER 2017-07-27 14:12 | Outpatient (RCR) | payer MEDICARE, OTHER ==
[2017-07-20 13:37] LABS: BASOPHILS % (AUTO) 1 % (0-10); EOSINOPHILS % (AUTO) 0 % (0-10); HEMATOCRIT 35 % (35-52); LYMPHOCYTES # (AUTO) 2.4 X 10^3 (1.0-4.0); LYMPHOCYTES % (AUTO) 38 % (12-44); MEAN CORPUSCULAR HEMOGLOBIN 29 PG (25-34); MEAN CORPUSCULAR HGB CONC 32 G/DL (32-36); MEAN CORPUSCULAR VOLUME 90 FL (80-99); MEAN PLATELET VOLUME 9.3 FL (7.4-10.4); MONOCYTES # (AUTO) 0.6 X 10^3 (0.0-1.0); MONOCYTES % (AUTO) 9 % (0-12); NEUTROPHILS # (AUTO) 3.3 X 10^3 (1.8-7.8); NEUTROPHILS % (AUTO) 52 % (42-75); PLATELET COUNT 262 10^3/uL (130-400); RED BLOOD COUNT 3.85 10^6/uL (4.35-5.85); RED CELL DISTRIBUTION WIDTH 15.3 % (10.0-14.5); WHITE BLOOD COUNT 6.2 10^3/uL (4.3-11.0)
[2017-07-20 13:58] LABS: ALANINE AMINOTRANSFERASE 25 U/L (0-55); ALBUMIN 4.1 GM/DL (3.2-4.5); ALKALINE PHOSPHATASE 52 U/L (40-136); BILIRUBIN,TOTAL 0.7 MG/DL (0.1-1.0); BUN/CREATININE RATIO 15; CALCIUM 9.4 MG/DL (8.5-10.1); CARBON DIOXIDE 29 MMOL/L (21-32); CHLORIDE 107 MMOL/L (98-107); CREATININE SERUM 0.78 MG/DL (0.60-1.30); GFR ESTIMATED > 60; GLUCOSE 110 MG/DL (70-105); POTASSIUM 4.3 MMOL/L (3.6-5.0); SODIUM 142 MMOL/L (135-145); TOTAL PROTEIN 7.1 GM/DL (6.4-8.2)
[~2017-07-27 14:12] MED LIST changes: -IOHEXOL 350 MG/ML 100 ML (OMNIPAQUE 350) VIAL IV ONE; -NS 250 ML (IVPB) BAG IV ONE
== END 2017-10-18 | disposition home or self-care (01) ==
LOC: ONC 14:12
PROVIDERS: ATTEND Internal Medicine Hematology & Oncology
DX: C50.911 Malignant neoplasm of unspecified site of right female breast (principal); C50.912 Malignant neoplasm of unspecified site of left female breast; D50.9 Iron deficiency anemia, unspecified; I10 Essential (primary) hypertension; E66.01 Morbid (severe) obesity due to excess calories; Z68.41 Body mass index [BMI] 40.0-44.9, adult; E78.5 Hyperlipidemia, unspecified; K21.9 Gastro-esophageal reflux disease without esophagitis; M19.90 Unspecified osteoarthritis, unspecified site; Z17.0 Estrogen receptor positive status [ER+]; Z90.11 Acquired absence of right breast and nipple; Z90.12 Acquired absence of left breast and nipple; Z79.899 Other long term (current) drug therapy
CPT/HCPCS: 36415; 80053; 82274; 82728; 83540; 85025; 99213

== ENCOUNTER 2017-10-31 12:48 | Outpatient (RCR) | payer MEDICARE, OTHER ==
[2017-10-27 15:18] LABS: BASOPHILS % (AUTO) 0 % (0-10); EOSINOPHILS % (AUTO) 0 % (0-10); HEMATOCRIT 36 % (35-52); HEMOGLOBIN 11.6 G/DL (11.5-16.0); LYMPHOCYTES # (AUTO) 2.7 X 10^3 (1.0-4.0); LYMPHOCYTES % (AUTO) 44 % (12-44); MEAN CORPUSCULAR HEMOGLOBIN 28 PG (25-34); MEAN CORPUSCULAR HGB CONC 32 G/DL (32-36); MEAN CORPUSCULAR VOLUME 88 FL (80-99); MEAN PLATELET VOLUME 9.9 FL (7.4-10.4); MONOCYTES # (AUTO) 0.5 X 10^3 (0.0-1.0); MONOCYTES % (AUTO) 9 % (0-12); NEUTROPHILS # (AUTO) 2.9 X 10^3 (1.8-7.8); NEUTROPHILS % (AUTO) 47 % (42-75); PLATELET COUNT 289 10^3/uL (130-400); RED CELL DISTRIBUTION WIDTH 14.9 % (10.0-14.5); WHITE BLOOD COUNT 6.1 10^3/uL (4.3-11.0)
[2017-10-27 15:41] LABS: ALANINE AMINOTRANSFERASE 29 U/L (0-55); ALBUMIN 4.4 GM/DL (3.2-4.5); ALKALINE PHOSPHATASE 57 U/L (40-136); BILIRUBIN,TOTAL 0.8 MG/DL (0.1-1.0); BUN/CREATININE RATIO 17; CALCIUM 9.7 MG/DL (8.5-10.1); CARBON DIOXIDE 25 MMOL/L (21-32); CHLORIDE 105 MMOL/L (98-107); CREATININE SERUM 0.86 MG/DL (0.60-1.30); GFR ESTIMATED > 60; GLUCOSE 101 MG/DL (70-105); POTASSIUM 3.6 MMOL/L (3.6-5.0); SODIUM 139 MMOL/L (135-145); TOTAL PROTEIN 7.3 GM/DL (6.4-8.2)
[~2017-10-31 12:48] MED LIST changes: -AMLO10TA2 PO; +AMLO10TA6 PO; -CHOL200014 PO; +CHOL200085 PO
== END 2017-11-18 | disposition home or self-care (01) ==
LOC: ONC 12:48
PROVIDERS: ATTEND Internal Medicine Hematology & Oncology
DX: C50.911 Malignant neoplasm of unspecified site of right female breast (principal); C50.912 Malignant neoplasm of unspecified site of left female breast; D64.9 Anemia, unspecified; I10 Essential (primary) hypertension; E66.01 Morbid (severe) obesity due to excess calories; Z68.41 Body mass index [BMI] 40.0-44.9, adult; E78.5 Hyperlipidemia, unspecified; K21.9 Gastro-esophageal reflux disease without esophagitis; M19.90 Unspecified osteoarthritis, unspecified site; Z17.0 Estrogen receptor positive status [ER+]; Z90.11 Acquired absence of right breast and nipple; Z90.12 Acquired absence of left breast and nipple; Z79.899 Other long term (current) drug therapy
CPT/HCPCS: 36415; 80053; 82728; 83540; 83550; 85025; 99213

== ENCOUNTER 2018-01-14 10:34 | Emergency (ER) | payer MEDICARE, OTHER ==
[~2018-01-14] VITALS: Ht 162.6 cm; Wt 111.1 kg
--- OUTSIDE RECORDS SUMMARY | 2018-01-14 10:41 | XMS REPORT | Continuity of Care Document ---
Author Author [facility] Organization [facility] Address Unknown Phone Unavailable Allergies Active Description Code Type Severity Reaction Onset Reported/Identified Relationship to Patient Clinical Status Yes No Known Drug Allergies [id number] Drug Allergy Unknown N/A 08/05/2012 Medications There is no data. Problems Date Dx Coded Attending Type Code Diagnosis Diagnosed By 02/01/2014 DARON ZAVALA, HARRISON Quinonez Ot 611.72 02/06/2014 LEONIDAS ZAVALA, GOLDIE Macias Ot 174.9 03/28/2014 LEONIDAS ZAVALA, GOLDIE Macias Ot 174.9 03/28/2014 LEONIDAS ZAVALA, GOLDIE Macias Ot 174.9 04/04/2014 LEONIDAS ZAVALA, GOLDIE Macias Ot 174.9 04/05/2014 LEONIDAS ZAVALA, GOLDIE Gilberto Ot 174.9 05/16/2014 LEONIDAS ZAVALA, GODLIE Macias Ot 174.9 05/16/2014 LEONIDAS ZAVALA, GOLDIE Macias Ot V86.0 07/03/2014 LEONIDAS ZAVALA, GOLDIE Macias Ot 174.9 07/03/2014 LEONIDAS ZAVALA, GOLDIE Macias Ot V86.0 09/17/2014 LEONIDAS ZAVALA, GOLDIE Macias Ot 174.9 09/17/2014 LEONIDAS ZAVALA, GOLDIE Macias Ot V86.0 09/17/2014 LEONIDAS ZAVALA, GOLDIE Macias Ot 174.9 09/17/2014 LEONIDAS ZAVALA, GOLDIE Macias Ot V86.0 09/17/2014 LEONIDAS ZAVALA, GOLDIE Gilberto Ot 174.9 09/17/2014 LEONIDAS ZAVALA, GOLDIE Gilberto Ot V86.0 09/24/2014 LEONIDAS ZAVALA, GOLDIE Macias Ot 174.9 09/24/2014 LEONIDAS ZAVALA, GOLDIE Macias Ot V86.0 09/25/2014 LEONIDAS ZAVALA, GOLDIE Macias Ot 174.9 09/25/2014 LEONIDAS ZAVALA, GOLDIE Macias Ot V86.0 11/12/2014 LEONIDAS ZAVALA, GOLDIE Macias Ot 174.9 11/12/2014 LEONIDAS ZAVALA, GOLDIE Macias Ot V86.0 12/18/2014 LEONIDAS ZAVALA, GOLDIE Macias Ot 174.9 12/18/2014 LEONIDAS ZAVALA, GOLDIE Gilberto Ot V86.0 01/10/2015 STANISLAW PARKSP Ot R01.1 01/23/2015 KASEY STANISLAW Moya GARMENT SEWER HAND Ot R01.1 02/28/2015 STANISLAW PARKS GARMENT SEWER HAND Ot R01.1 03/11/2015 LEONIDAS ZAVALA, GOLDIE Gilberto Ot C50.911 03/11/2015 LEONIDAS ZAVALA, GOLDIE K Ot C50.912 03/11/2015 LEONIDAS ZAVALA, GOLDIE Gilberto Ot E66.01 03/11/2015 LEONIDSA ZAVALA, GOLDIE K Ot E78.5 03/11/2015 LEONIDAS ZAVALA, GOLDIE K Ot I10 03/11/2015 LEONIDAS ZAVALA, GOLDIE K Ot K21.9 03/11/2015 LEONIDAS ZAVALA, GOLDIE K Ot M19.90 03/11/2015 LEONIDAS ZAVALA, GOLDIE K Ot Z17.0 03/11/2015 LEONIDAS ZAVALA, GOLDIE K Ot Z68.37 03/11/2015 LEONIDAS ZAVALA, GOLDIE K Ot Z79.899 03/11/2015 LEONIDAS ZAVALA, GOLDIE K Ot Z90.11 03/11/2015 LEONIDAS ZAVALA, GOLDIE K Ot Z90.12 03/24/2015 LEONIDAS ZAVALA, GOLDIE Gilberto Ot C50.911 03/24/2015 LEONIDAS ZAVALA, GOLDIE K Ot C50.912 03/24/2015 LEONIDAS ZAVALA, GOLDIE K Ot E66.01 03/24/2015 LEONIDAS ZAVALA, GOLDIE K Ot E78.5 03/24/2015 LEONIDAS ZAVALA, GOLDIE K [...] ZAVALA, GOLDIE K Ot C50.912 03/25/2015 LEONIDAS ZAVALA, GOLDIE K Ot E66.01 03/25/2015 LEONIDAS ZAVALA, [...] LEONIDAS ZAVALA, GOLDIE K Ot V45.71 03/27/2015 LEONIDAS ZAVALA, GOLDIE K Ot V58.69 03/27/2015 LEONIDAS ZAVALA, GOLDIE K Ot V85.37 03/27/2015 LEONIDAS ZAVALA, GOLDIE K Ot V86.0 03/27/2015 LEONIDAS ZAVALA, GOLDIE K Ot Z17.0 03/27/2015 LEONIDAS ZAVALA, GOLDIE K Ot Z68.37 03/27/2015 LEONIDAS ZAVALA, GOLDIE K Ot Z79.899 03/27/2015 LEONIDAS ZAVALA, GOLDIE K Ot Z90.11 03/27/2015 LEONIDAS ZAVALA, GOLDIE K Ot Z90.12 05/16/2015 LEONIDAS ZAVALA, GOLDIE K Ot C50.911 05/16/2015 LEONIDAS ZAVALA, GOLDIE K Ot C50.912 05/16/2015 LEONIDAS ZAVALA, GOLDIE K Ot E66.01 05/16/2015 LEONIDAS ZAVALA, GOLDIE K Ot E78.5 05/16/2015 LEONIDAS ZAVALA, GOLDIE K Ot I10 05/16/2015 LEONIDAS ZAVALA, GOLDIE K Ot K21.9 05/16/2015 LEONIDAS ZAVALA, GOLDIE K Ot M19.90 05/16/2015 LEONIDAS MD, GOLDIE K Ot Z17.0 05/16/2015 LEONIDAS ZAVALA, GOLDIE K Ot Z68.37 05/16/2015 LEONIDAS ZAVALA, GOLDIE K Ot Z79.899 05/16/2015 LEONIDAS ZAVALA, GOLDIE K Ot Z90.11 05/16/2015 LEONIDAS ZAVALA, GOLDIE K Ot Z90.12 06/17/2015 LEONIDAS ZAVALA, GOLDIE K Ot C50.911 06/17/2015 LEONIDAS ZAVALA, GOLDIE K Ot C50.912 06/17/2015 LEONIDAS ZAVALA, GOLDIE K Ot E66.01 06/17/2015 LEONIDAS ZAVALA, GOLDIE K Ot E78.5 06/17/2015 LEONIDAS [...] BODY MASS INDEX (BMI) 37.0-37.9, ADULT 08/11/2015 GOLDIE LAUREN MD, Ot 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 08/11/2015 GOLDIE LAUREN MD, [...] 09/16/2015 GOLDIE LAUREN MD, Ot 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 09/16/2015 GOLDIE LAUREN MD, [...] Ot E78.5 HYPERLIPIDEMIA, UNSPECIFIED 09/23/2015 GOLDIE LAUREN MD, Ot I10 ESSENTIAL (PRIMARY) HYPERTENSION 09/23/2015 GOLDIE LAUREN MD, Ot K21.9 GASTRO-ESOPHAGEAL REFLUX DISEASE WITHOUT 09/23/2015 GOLDIE LAUREN MD, Ot M19.90 UNSPECIFIED OSTEOARTHRITIS, UNSPECIFIED 09/23/2015 GOLDIE LAUREN MD, Ot Z17.0 ESTROGEN RECEPTOR POSITIVE STATUS [ER+] 09/23/2015 GOLDIE LAUREN MD, Ot Z68.37 BODY MASS INDEX (BMI) 37.0-37.9, ADULT 09/23/2015 GOLDIE LAUREN MD, Ot Z79.899 OTHER JAIL (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 09/23/2015 GOLDIE LAUREN MD, Ot Z90.11 ACQUIRED ABSENCE OF RIGHT BREAST AND NIP 09/23/2015 GOLDIE LAUREN MD, Ot Z90.12 ACQUIRED ABSENCE [...] M19.90 UNSPECIFIED OSTEOARTHRITIS, UNSPECIFIED 09/24/2015 GOLDIE LAUREN MD, Ot Z17.0 ESTROGEN RECEPTOR POSITIVE STATUS [ER+] 09/24/2015 GOLDIE LAUREN MD, Ot Z68.37 BODY MASS INDEX (BMI) 37.0-37.9, ADULT 09/24/2015 GOLDIE LAUREN MD, Ot 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 09/24/2015 GOLDIE LAUREN MD, Ot Z90.11 ACQUIRED ABSENCE OF RIGHT BREAST AND NIP 09/24/2015 GOLDIE LAUREN MD, Ot Z90.12 ACQUIRED ABSENCE [...] I10 ESSENTIAL (PRIMARY) HYPERTENSION 10/15/2015 GOLDIE LAUREN MD, Ot K21.9 GASTRO-ESOPHAGEAL REFLUX DISEASE WITHOUT 10/15/2015 GOLDIE LAUREN MD, Ot M19.90 UNSPECIFIED OSTEOARTHRITIS, UNSPECIFIED 10/15/2015 GOLDIE LAUREN MD, Ot Z17.0 ESTROGEN RECEPTOR POSITIVE STATUS [ER+] 10/15/2015 GOLDIE LAUREN MD, Ot Z68.37 BODY MASS INDEX (BMI) 37.0-37.9, ADULT 10/15/2015 GOLDIE LAUREN MD, Ot Z79.899 OTHER JAIL (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 10/15/2015 GOLDIE LAUREN MD, [...] Ot I10 ESSENTIAL (PRIMARY) HYPERTENSION 10/23/2015 GOLDIE LAUREN MD, Ot K21.9 GASTRO-ESOPHAGEAL REFLUX DISEASE WITHOUT 10/23/2015 GOLDIE LAUREN MD, Ot M19.90 UNSPECIFIED OSTEOARTHRITIS, UNSPECIFIED 10/23/2015 GOLDIE LAUREN MD, Ot Z17.0 ESTROGEN RECEPTOR POSITIVE STATUS [ER+] 10/23/2015 GOLDIE LAUREN MD, Ot Z68.37 BODY MASS INDEX (BMI) 37.0-37.9, ADULT 10/23/2015 GOLDIE LAUREN MD, Ot Z79.899 OTHER JAIL (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 10/23/2015 GOLDIE LAUREN MD, [...] (SEVERE) OBESITY DUE TO EXCESS CA 12/11/2015 GOLDIE LAUREN MD, Ot E78.5 HYPERLIPIDEMIA, UNSPECIFIED 12/11/2015 GOLDIE LAUREN MD Ot I10 ESSENTIAL (PRIMARY) HYPERTENSION 12/11/2015 GOLDIE LAUREN MD, Ot K21.9 GASTRO-ESOPHAGEAL REFLUX DISEASE WITHOUT 12/11/2015 GOLDIE LAUREN MD, Ot M19.90 UNSPECIFIED OSTEOARTHRITIS, UNSPECIFIED 12/11/2015 GOLDIE LAUREN MD, Ot Z17.0 ESTROGEN RECEPTOR POSITIVE STATUS [ER+] 12/11/2015 GOLDIE LAUREN MD, Ot Z68.37 BODY MASS INDEX (BMI) 37.0-37.9, ADULT 12/11/2015 GOLDIE LAUREN MD, Ot 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 12/11/2015 GOLDIE LAUREN MD, Ot Z90.11 ACQUIRED ABSENCE OF RIGHT BREAST AND NIP 12/11/2015 GOLDIE LAUREN MD, Ot Z90.12 ACQUIRED ABSENCE OF LEFT BREAST AND NIPP 01/20/2016 GOLDIE LAUREN MD, Ot C50.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 NEOPLASM OF UNSP SITE OF RIGHT 01/20/2016 GOLDIE LAUREN MD, Ot C50.912 MALIGNANT NEOPLASM OF UNSPECIFIED SITE O 01/20/2016 GOLDIE LAUREN MD, Ot E66.01 MORBID (SEVERE) [...] 01/20/2016 GOLDIE LAUREN MD, Ot 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 01/20/2016 GOLDIE LAUREN MD, Ot Z90.11 ACQUIRED ABSENCE OF RIGHT BREAST AND NIP 01/20/2016 GOLDIE LAUREN MD, Ot Z90.12 ACQUIRED ABSENCE OF LEFT BREAST AND NIPP 01/21/2016 GOLDIE LAUREN MD, Ot C50.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 NEOPLASM OF UNSP SITE OF RIGHT 01/21/2016 GOLDIE LAUREN MD, Ot C50.912 MALIGNANT NEOPLASM OF UNSPECIFIED SITE O 01/21/2016 GOLDIE LAUREN MD Ot E66.01 MORBID (SEVERE) [...] 01/21/2016 GOLDIE LAUREN MD, Ot Z79.899 OTHER JAIL (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 01/21/2016 GOLDIE LAUREN MD, [...] Ot E78.5 HYPERLIPIDEMIA, UNSPECIFIED 04/29/2016 GOLDIE LAUREN MD, Ot I10 ESSENTIAL (PRIMARY) HYPERTENSION 04/29/2016 GOLDIE LAUREN MD, Ot K21.9 GASTRO-ESOPHAGEAL REFLUX DISEASE WITHOUT 04/29/2016 GOLDIE LAUREN MD, Ot M19.90 UNSPECIFIED OSTEOARTHRITIS, UNSPECIFIED 04/29/2016 GOLDIE LAUREN MD, Ot Z17.0 ESTROGEN RECEPTOR POSITIVE STATUS [ER+] 04/29/2016 GOLDIE LAUREN MD, Ot Z68.37 BODY MASS INDEX (BMI) 37.0-37.9, ADULT 04/29/2016 GOLDIE LAUREN MD, Ot Z79.899 OTHER JAIL (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 04/29/2016 GOLDIE LAUREN MD Ot Z90.11 ACQUIRED ABSENCE OF RIGHT BREAST AND NIP 04/29/2016 GOLDIE LAUREN MD, Ot Z90.12 ACQUIRED ABSENCE [...] GASTRO-ESOPHAGEAL REFLUX DISEASE WITHOUT 06/04/2016 GOLDIE LAUREN MD Ot M19.90 UNSPECIFIED OSTEOARTHRITIS, UNSPECIFIED 06/04/2016 GOLDIE LAUREN MD, Ot Z17.0 ESTROGEN RECEPTOR POSITIVE STATUS [ER+] 06/04/2016 GOLDIE LAUREN MD, Ot Z68.37 BODY MASS INDEX (BMI) 37.0-37.9, ADULT 06/04/2016 GOLDIE LAUREN MD, Ot Z79.899 OTHER JAIL (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 06/04/2016 GOLDIE LAUREN MD, Ot Z90.11 ACQUIRED ABSENCE OF RIGHT BREAST AND NIP 06/04/2016 GOLDIE LAUREN MD Ot Z90.12 ACQUIRED ABSENCE [...] GASTRO-ESOPHAGEAL REFLUX DISEASE WITHOUT 07/27/2016 GOLDIE LAUREN MD Ot M19.90 UNSPECIFIED OSTEOARTHRITIS, UNSPECIFIED 07/27/2016 GOLDIE LAUREN MD Ot Z17.0 ESTROGEN RECEPTOR POSITIVE STATUS [ER+] 07/27/2016 GOLDIE LAUREN MD, Ot Z68.37 BODY MASS INDEX (BMI) 37.0-37.9, ADULT 07/27/2016 GOLDIE LAUREN MD Ot Z79.899 OTHER JAIL (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 07/27/2016 GOLDIE LAUREN MD Ot Z90.11 ACQUIRED ABSENCE OF RIGHT BREAST AND NIP 07/27/2016 GOLDIE LAUREN MD Ot Z90.12 ACQUIRED ABSENCE OF LEFT BREAST AND NIPP 09/23/2016 VIN HOFF MD, Ot Z01.818 ENCOUNTER FOR OTHER PREPROCEDURAL EXAMIN 09/23/2016 VIN HOFF MD, Ot Z86.010 PERSONAL HISTORY OF COLONIC POLYPS 09/24/2016 VIN HOFF MD Ot E78.00 PURE HYPERCHOLESTEROLEMIA, UNSPECIFIED 09/24/2016 VIN HOFF MD, Ot I10 ESSENTIAL (PRIMARY) HYPERTENSION 09/24/2016 VIN HOFF MD, Ot K57.30 DVRTCLOS OF LG INT W/O PERFORATION OR AB 09/24/2016 VIN HOFF MD, Ot K64.0 FIRST DEGREE HEMORRHOIDS 09/24/2016 VIN HOFF MD Ot Z12.11 ENCOUNTER FOR SCREENING FOR MALIGNANT NE 09/24/2016 VIN HOFF MD, Ot 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 09/24/2016 VIN HOFF MD Ot Z85.3 PERSONAL HISTORY OF MALIGNANT NEOPLASM O 09/24/2016 VIN HOFF MD Ot Z86.010 PERSONAL HISTORY OF COLONIC POLYPS 09/27/2016 VIN HOFF MD, Ot E78.00 PURE HYPERCHOLESTEROLEMIA, UNSPECIFIED 09/27/2016 VIN HOFF MD Ot I10 ESSENTIAL (PRIMARY) HYPERTENSION 09/27/2016 VIN HOFF MD, Ot K57.30 DVRTCLOS OF LG INT W/O PERFORATION OR AB 09/27/2016 VIN HOFF MD Ot K64.0 FIRST DEGREE HEMORRHOIDS 09/27/2016 VIN HOFF MD Ot Z12.11 ENCOUNTER FOR SCREENING FOR MALIGNANT NE 09/27/2016 VIN HOFF MD, Ot 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 09/27/2016 VIN HOFF MD, Ot Z85.3 PERSONAL HISTORY OF MALIGNANT NEOPLASM O 09/27/2016 VIN HOFF MD, Ot Z86.010 PERSONAL HISTORY OF COLONIC POLYPS 11/17/2016 STANISLAW PARKS Ot M79.605 PAIN IN LEFT LEG 11/26/2016 ANDREA NG MD, Ot C50.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 NEOPLASM OF UNSP SITE OF RIGHT 11/26/2016 ANDREA NG MD, Ot C50.912 MALIGNANT NEOPLASM OF UNSPECIFIED SITE O 11/26/2016 ANDREA NG MD, Ot E66.01 MORBID (SEVERE) OBESITY DUE TO EXCESS CA 11/26/2016 ANDREA NG MD, Ot E78.5 HYPERLIPIDEMIA, UNSPECIFIED 11/26/2016 ANDREA NG MD, Ot I10 ESSENTIAL (PRIMARY) HYPERTENSION 11/26/2016 ANDREA NG MD, Ot K21.9 GASTRO-ESOPHAGEAL REFLUX DISEASE WITHOUT 11/26/2016 ANDREA NG MD, Ot M19.90 UNSPECIFIED OSTEOARTHRITIS, UNSPECIFIED 11/26/2016 ANDREA NG MD, Ot Z17.0 ESTROGEN RECEPTOR POSITIVE STATUS [ER+] 11/26/2016 ANDREA NG MD, Ot Z68.37 BODY MASS INDEX (BMI) 37.0-37.9, ADULT 11/26/2016 ANDREA NG MD, Ot 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 11/26/2016 ANDREA NG MD, Ot Z90.11 ACQUIRED ABSENCE OF RIGHT BREAST AND NIP 11/26/2016 ANDREA NG MD, Ot Z90.12 ACQUIRED ABSENCE OF LEFT BREAST AND NIPP 02/11/2017 ANDREA NG MD, Ot C50.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 NEOPLASM OF UNSP SITE OF RIGHT 02/11/2017 ANDREA NG MD, Ot C50.912 MALIGNANT NEOPLASM OF UNSPECIFIED SITE O 02/11/2017 ANDREA NG MD, Ot E66.01 MORBID (SEVERE) OBESITY DUE TO EXCESS CA 02/11/2017 ANDREA NG MD, Ot E78.5 HYPERLIPIDEMIA, UNSPECIFIED 02/11/2017 ANDREA NG MD, Ot I10 ESSENTIAL (PRIMARY) HYPERTENSION 02/11/2017 ANDREA NG MD, Ot K21.9 GASTRO-ESOPHAGEAL REFLUX DISEASE WITHOUT 02/11/2017 ANDREA NG MD, Ot M19.90 UNSPECIFIED OSTEOARTHRITIS, UNSPECIFIED 02/11/2017 ANDREA NG MD, Ot Z17.0 ESTROGEN RECEPTOR POSITIVE STATUS [ER+] 02/11/2017 ANDREA NG MD, Ot Z68.41 BODY MASS INDEX (BMI) 40.0-44.9, ADULT 02/11/2017 ANDREA NG MD, Ot 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 02/11/2017 ANDREA NG MD, Ot Z90.11 ACQUIRED ABSENCE OF RIGHT BREAST AND NIP 02/11/2017 ANDREA NG MD, Ot Z90.12 ACQUIRED ABSENCE OF LEFT BREAST AND NIPP 03/18/2017 ANDREA NG MD, Ot C50.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 NEOPLASM OF UNSP SITE OF RIGHT 03/18/2017 ANDREA NG MD, Ot C50.912 MALIGNANT NEOPLASM OF UNSPECIFIED SITE O 03/18/2017 ANDREA NG MD, Ot E66.01 MORBID (SEVERE) OBESITY DUE TO EXCESS CA 03/18/2017 ANDREA NG MD, Ot E78.5 HYPERLIPIDEMIA, UNSPECIFIED 03/18/2017 ANDREA NG MD Ot I10 ESSENTIAL (PRIMARY) HYPERTENSION 03/18/2017 ANDREA NG MD, Ot K21.9 GASTRO-ESOPHAGEAL REFLUX DISEASE WITHOUT 03/18/2017 ANDREA NG MD, Ot M19.90 UNSPECIFIED OSTEOARTHRITIS, UNSPECIFIED 03/18/2017 ANDREA NG MD Ot Z17.0 ESTROGEN RECEPTOR POSITIVE STATUS [ER+] 03/18/2017 ANDREA NG MD, Ot Z68.41 BODY MASS INDEX (BMI) 40.0-44.9, ADULT 03/18/2017 ANDREA NG MD, Ot Z79.899 OTHER JAIL (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 03/18/2017 ANDREA NG MD, Ot Z90.11 ACQUIRED ABSENCE OF RIGHT BREAST AND NIP 03/18/2017 ANDREA NG MD, Ot Z90.12 ACQUIRED ABSENCE OF LEFT BREAST AND NIPP 03/21/2017 ANDREA NG MD, Ot C50.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 NEOPLASM OF UNSP SITE OF RIGHT 03/21/2017 ANDREA NG MD, Ot C50.912 MALIGNANT NEOPLASM OF UNSPECIFIED SITE O 03/21/2017 ANDREA NG MD, Ot E66.01 MORBID (SEVERE) OBESITY DUE TO EXCESS CA 03/21/2017 ANDREA NG MD, Ot E78.5 HYPERLIPIDEMIA, UNSPECIFIED 03/21/2017 ANDREA NG MD Ot I10 ESSENTIAL (PRIMARY) HYPERTENSION 03/21/2017 ANDREA NG MD, Ot K21.9 GASTRO-ESOPHAGEAL REFLUX DISEASE WITHOUT 03/21/2017 ANDREA NG MD, Ot M19.90 UNSPECIFIED OSTEOARTHRITIS, UNSPECIFIED 03/21/2017 ANDREA NG MD, Ot Z17.0 ESTROGEN RECEPTOR POSITIVE STATUS [ER+] 03/21/2017 ANDREA NG MD, Ot Z68.41 BODY MASS INDEX (BMI) 40.0-44.9, ADULT 03/21/2017 ANDREA NG MD, Ot 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 03/21/2017 ANDREA NG MD, Ot Z90.11 ACQUIRED ABSENCE OF RIGHT BREAST AND NIP 03/21/2017 ANDREA NG MD, Ot Z90.12 ACQUIRED ABSENCE OF LEFT BREAST AND NIPP 03/23/2017 ANDREA NG MD, Ot C50.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 NEOPLASM OF UNSP SITE OF RIGHT 03/23/2017 ANDREA NG MD, Ot C50.912 MALIGNANT NEOPLASM OF UNSPECIFIED SITE O 03/23/2017 ANDREA NG MD, Ot E66.01 MORBID (SEVERE) OBESITY DUE TO EXCESS CA 03/23/2017 ANDREA NG MD, Ot E78.5 HYPERLIPIDEMIA, UNSPECIFIED 03/23/2017 ANDREA NG MD, Ot I10 ESSENTIAL (PRIMARY) HYPERTENSION 03/23/2017 ANDREA NG MD, Ot K21.9 GASTRO-ESOPHAGEAL REFLUX DISEASE WITHOUT 03/23/2017 ANDREA NG MD, Ot M19.90 UNSPECIFIED OSTEOARTHRITIS, UNSPECIFIED 03/23/2017 ANDREA NG MD, Ot Z17.0 ESTROGEN RECEPTOR POSITIVE STATUS [ER+] 03/23/2017 ANDREA NG MD, Ot Z68.41 BODY MASS INDEX (BMI) 40.0-44.9, ADULT 03/23/2017 ANDREA NG MD, Ot Z79.899 OTHER JAIL (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 03/23/2017 ANDREA NG MD, Ot Z90.11 ACQUIRED ABSENCE OF RIGHT BREAST AND NIP 03/23/2017 ANDREA NG MD, Ot Z90.12 ACQUIRED ABSENCE OF LEFT BREAST AND NIPP 07/26/2017 ANDREA NG MD, Ot C50.111 MALIGNANT NEOPLASM OF CENTRAL PORTION OF 07/26/2017 ANDREA NG MD, Ot 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 07/26/2017 ANDREA NG MD, Ot C50.111 MALIGNANT NEOPLASM OF CENTRAL PORTION OF 07/26/2017 ANDREA NG MD, Ot 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 08/17/2017 ANDREA NG MD, Ot C50.111 MALIGNANT NEOPLASM OF CENTRAL PORTION OF 08/17/2017 ANDREA NG MD, Ot 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 09/09/2017 ANDREA NG MD, Ot C50.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 NEOPLASM OF UNSP SITE OF RIGHT 09/09/2017 ANDREA NG MD, Ot C50.912 MALIGNANT NEOPLASM OF UNSPECIFIED SITE O 09/09/2017 ANDREA NG MD, Ot E66.01 MORBID (SEVERE) OBESITY DUE TO EXCESS CA 09/09/2017 ANDREA NG MD, Ot E78.5 HYPERLIPIDEMIA, UNSPECIFIED 09/09/2017 ANDREA NG MD, Ot I10 ESSENTIAL (PRIMARY) HYPERTENSION 09/09/2017 ANDREA NG MD, Ot K21.9 GASTRO-ESOPHAGEAL REFLUX DISEASE WITHOUT 09/09/2017 ANDREA NG MD, Ot M19.90 UNSPECIFIED OSTEOARTHRITIS, UNSPECIFIED 09/09/2017 ANDREA NG MD, Ot Z17.0 ESTROGEN RECEPTOR POSITIVE STATUS [ER+] 09/09/2017 ANDREA NG MD, Ot Z68.41 BODY MASS INDEX (BMI) 40.0-44.9, ADULT 09/09/2017 ANDREA NG MD, Ot Z79.899 OTHER JAIL (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 09/09/2017 ANDREA NG MD, Ot Z90.11 ACQUIRED ABSENCE OF RIGHT BREAST AND NIP 09/09/2017 ANDREA NG MD, Ot Z90.12 ACQUIRED ABSENCE OF LEFT BREAST AND NIPP 10/11/2017 ANDREA NG MD, Ot C50.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 NEOPLASM OF UNSP SITE OF RIGHT 10/11/2017 ANDREA NG MD, Ot C50.912 MALIGNANT NEOPLASM OF UNSPECIFIED SITE O 10/11/2017 XUN MD, REYES-GUY Ot E66.01 MORBID (SEVERE) OBESITY DUE TO EXCESS CA 10/11/2017 ANDREA NG MD Ot E78.5 HYPERLIPIDEMIA, UNSPECIFIED 10/11/2017 ANDREA NG MD Ot I10 ESSENTIAL (PRIMARY) HYPERTENSION 10/11/2017 ANDREA NG MD, Ot K21.9 GASTRO-ESOPHAGEAL REFLUX DISEASE WITHOUT 10/11/2017 ANDREA NG MD, Ot M19.90 UNSPECIFIED OSTEOARTHRITIS, UNSPECIFIED 10/11/2017 ANDREA NG MD, Ot Z17.0 ESTROGEN RECEPTOR POSITIVE STATUS [ER+] 10/11/2017 ANDREA NG MD, Ot Z68.41 BODY MASS INDEX (BMI) 40.0-44.9, ADULT 10/11/2017 ANDREA NG MD, Ot 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 10/11/2017 ANDREA NG MD, Ot Z90.11 ACQUIRED ABSENCE OF RIGHT BREAST AND NIP 10/11/2017 ANDREA NG MD, Ot Z90.12 ACQUIRED ABSENCE OF LEFT BREAST AND NIPP 11/18/2017 ANDREA NG MD Ot C50.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 NEOPLASM OF UNSP SITE OF RIGHT 11/18/2017 ANDREA NG MD, Ot C50.912 MALIGNANT NEOPLASM OF UNSPECIFIED SITE O 11/18/2017 ANDREA NG MD, Ot D64.9 ANEMIA, UNSPECIFIED 11/18/2017 ANDREA NG MD Ot E66.01 MORBID (SEVERE) OBESITY DUE TO EXCESS CA 11/18/2017 ANDREA NG MD, Ot E78.5 HYPERLIPIDEMIA, UNSPECIFIED 11/18/2017 ANDREA NG MD Ot I10 ESSENTIAL (PRIMARY) HYPERTENSION 11/18/2017 ANDREA NG MD, Ot K21.9 GASTRO-ESOPHAGEAL REFLUX DISEASE WITHOUT 11/18/2017 ANDREA NG MD, Ot M19.90 UNSPECIFIED OSTEOARTHRITIS, UNSPECIFIED 11/18/2017 ANDREA NG MD, Ot Z17.0 ESTROGEN RECEPTOR POSITIVE STATUS [ER+] 11/18/2017 ANDREA NG MD, Ot Z68.41 BODY MASS INDEX (BMI) 40.0-44.9, ADULT 11/18/2017 ANDREA NG MD, Ot 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 11/18/2017 ANDREA NG MD, Ot Z90.11 ACQUIRED ABSENCE OF RIGHT BREAST AND NIP 11/18/2017 ANDREA NG MD, Ot Z90.12 ACQUIRED ABSENCE OF LEFT BREAST AND NIPP 12/13/2017 ANDREA NG MD, Ot C50.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 NEOPLASM OF UNSP SITE OF RIGHT 12/13/2017 ANDREA NG MD, Ot C50.912 MALIGNANT NEOPLASM OF UNSPECIFIED SITE O 12/13/2017 ANDREA NG MD, Ot D64.9 ANEMIA, UNSPECIFIED 12/13/2017 ANDREA NG MD Ot E66.01 MORBID (SEVERE) OBESITY DUE TO EXCESS CA 12/13/2017 ANDREA NG MD, Ot E78.5 HYPERLIPIDEMIA, UNSPECIFIED 12/13/2017 ANDREA NG MD, Ot I10 ESSENTIAL (PRIMARY) HYPERTENSION 12/13/2017 ANDRAE NG MD, Ot K21.9 GASTRO-ESOPHAGEAL REFLUX DISEASE WITHOUT 12/13/2017 ANDREA NG MD, Ot M19.90 UNSPECIFIED OSTEOARTHRITIS, UNSPECIFIED 12/13/2017 ANDREA NG MD, Ot Z17.0 ESTROGEN RECEPTOR POSITIVE STATUS [ER+] 12/13/2017 ANDREA NG MD, Ot Z68.41 BODY MASS INDEX (BMI) 40.0-44.9, ADULT 12/13/2017 ANDREA NG MD, Ot 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 12/13/2017 ANDREA NG MD, Ot Z90.11 ACQUIRED ABSENCE OF RIGHT BREAST AND NIP 12/13/2017 ANDREA NG MD, Ot Z90.12 ACQUIRED ABSENCE OF LEFT BREAST AND NIPP 12/19/2017 ANDREA NG MD, Ot C50.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 NEOPLASM OF UNSP SITE OF RIGHT 12/19/2017 ANDREA NG MD, Ot C50.912 MALIGNANT NEOPLASM OF UNSPECIFIED SITE O 12/19/2017 ANDREA NG MD, Ot D64.9 ANEMIA, UNSPECIFIED 12/19/2017 ANDREA NG MD Ot E66.01 MORBID (SEVERE) OBESITY DUE TO EXCESS CA 12/19/2017 ANDREA NG MD, Ot E78.5 HYPERLIPIDEMIA, UNSPECIFIED 12/19/2017 ANDREA NG MD Ot I10 ESSENTIAL (PRIMARY) HYPERTENSION 12/19/2017 ANDREA NG MD, Ot K21.9 GASTRO-ESOPHAGEAL REFLUX DISEASE WITHOUT 12/19/2017 ANDREA NG MD, Ot M19.90 UNSPECIFIED OSTEOARTHRITIS, UNSPECIFIED 12/19/2017 ANDREA NG MD, Ot Z17.0 ESTROGEN RECEPTOR POSITIVE STATUS [ER+] 12/19/2017 ANDREA NG MD, Ot Z68.41 BODY MASS INDEX (BMI) 40.0-44.9, ADULT 12/19/2017 ANDREA NG MD, Ot 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 12/19/2017 ANDREA NG MD, Ot Z90.11 ACQUIRED ABSENCE OF RIGHT BREAST AND NIP 12/19/2017 ANDREA NG MD, Ot Z90.12 ACQUIRED ABSENCE OF LEFT BREAST AND NIPP 12/19/2017 ANDREA NG MD, Ot C50.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 NEOPLASM OF UNSP SITE OF RIGHT 12/19/2017 ANDREA NG MD, Ot C50.912 MALIGNANT NEOPLASM OF UNSPECIFIED SITE O 12/19/2017 ANDREA NG MD, Ot D64.9 ANEMIA, UNSPECIFIED 12/19/2017 ANDREA NG MD Ot E66.01 MORBID (SEVERE) OBESITY DUE TO EXCESS CA 12/19/2017 ANDREA NG MD Ot E78.5 HYPERLIPIDEMIA, UNSPECIFIED 12/19/2017 ANDREA NG MD Ot I10 ESSENTIAL (PRIMARY) HYPERTENSION 12/19/2017 ANDREA NG MD, Ot K21.9 GASTRO-ESOPHAGEAL REFLUX DISEASE WITHOUT 12/19/2017 ANDREA NG MD, Ot M19.90 UNSPECIFIED OSTEOARTHRITIS, UNSPECIFIED 12/19/2017 ANDREA NG MD, Ot Z17.0 ESTROGEN RECEPTOR POSITIVE STATUS [ER+] 12/19/2017 ANDREA NG MD, Ot Z68.41 BODY MASS INDEX (BMI) 40.0-44.9, ADULT 12/19/2017 ANDREA NG MD, Ot 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 Results There is no data. Encounters ACCT No. Visit Date/Time Discharge Status Pt. Type Provider Facility Loc./Unit Complaint [id number] 12/19/2017 00:36:00 12/19/2017 23:59:59 CLS Preadmit ANDREA NG MD [facility] ONC [id number] 10/31/2017 12:48:00 11/18/2017 00:01:00 DIS Outpatient ANDREA NG MD [facility] ONC [id number] 07/27/2017 14:12:00 10/18/2017 00:01:00 DIS Outpatient ANDREA NG MD [facility] ONC [id number] 07/25/2017 09:39:00 07/25/2017 23:59:59 CLS Outpatient ANDREA NG MD 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 ONC [id number] 10/26/2016 10:13:00 10/26/2016 23:59:59 CLS Outpatient STANISLAW PARKS [facility] RAD L LEG PAIN [id number] 09/24/2016 10:51:00 09/24/2016 13:10:00 DIS Outpatient VIN HOFF MD [facility] ENDO HISTORY OF POLYPS [id number] 09/22/2016 05:36:00 09/22/2016 15:46:00 DIS Outpatient VIN HOFF MD [facility] PREOP COLONOSCOPY [id number] 04/28/2016 09:46:00 07/27/2016 00:01:00 DIS Outpatient GOLDIE LAUREN MD [facility] ONC [id number] 10/22/2015 14:55:00 10/22/2015 23:59:59 CLS Outpatient GOLDIE LAUREN MD [facility] ONC [id number] 06/25/2015 13:53:00 09/23/2015 00:01:00 DIS Outpatient GOLDIE LAUREN MD [facility] ONC [id number] 03/26/2015 13:54:00 06/24/2015 00:01:00 DIS Outpatient GOLDIE LAUREN MD [facility] ONC [id number] 12/24/2014 09:25:00 03/24/2015 00:01:00 DIS Outpatient GOLDIE LAUREN MD [facility] ONC [id number] 01/03/2015 10:09:00 01/03/2015 23:59:59 CLS Outpatient STANISLAW PARKS [facility] CARD [id number] 09/24/2014 08:49:00 12/18/2014 00:01:00 DIS Outpatient GOLDIE LAUREN MD [facility] ONC [id number] 06/27/2014 09:47:00 07/03/2014 00:01:00 DIS Outpatient GOLDIE LAUREN MD [facility] ONC [id number] 01/03/2014 12:55:00 02/06/2014 00:01:00 DIS Outpatient GOLDIE LAUREN MD [facility] ONC [id number] 11/22/2013 07:44:00 11/23/2013 13:10:00 DIS Outpatient [id number] 11/16/2013 10:06:00 11/16/2013 23:59:59 CLS Outpatient [id number] 11/13/2013 14:16:00 11/13/2013 23:59:59 CLS Outpatient [id number] 10/30/2013 08:47:00 10/30/2013 23:59:59 CLS Outpatient HARRISON NERI MD Via [facility] RAD [id number] 10/22/2013 08:45:00 10/22/2013 23:59:59 CLS Outpatient [id number] 10/03/2013 08:42:00 10/03/2013 23:59:59 CLS Outpatient [id number] 02/06/2013 07:29:00 02/06/2013 23:59:59 CLS Outpatient [id number] 01/16/2013 12:42:00 01/16/2013 16:15:00 DIS Outpatient [id number] 01/11/2013 07:12:00 01/11/2013 23:59:59 CLS Outpatient [id number] 10/11/2012 08:42:00 10/11/2012 11:25:00 DIS Outpatient [id number] 10/06/2012 09:07:00 10/06/2012 23:59:59 CLS Outpatient [id number] 08/31/2012 08:55:00 08/31/2012 23:59:59 CLS Outpatient [id number] 08/05/2012 14:30:00 08/05/2012 15:58:00 DIS Emergency [facility] 12/24/2014 13:57:17 ACT Document Registration [id number] 10/26/2016 09:46:26 10/26/2016 23:59:59 CLS Outpatient
--- NOTE | 2018-01-14 11:04 | ED Upper Extremity ---
General Chief Complaint: Upper Extremity Stated Complaint: L WRIST PAIN Source: patient Exam Limitations: no limitations History of Present Illness Date Seen by Provider: Jan 14, 2018 Time Seen by Provider: 11:02 Initial Comments Patient became entangled in her dogs leash last night causing her to fall off the porch. Subsequent left wrist pain and left knee pain. Onset: yesterday Severity: moderate Pain/Injury Location: left wrist Method of Injury: fell Modifying Factors: Worse With Movement Allergies and Home Medications Allergies Coded Allergies: No Known Drug Allergies (Unverified , 08/05/12) Home Medications Amlodipine Besylate 10 Mg Tablet, 10 MG PO DAILY, (Reported) Cholecalciferol (Vitamin D3) 2,000 Unit Tablet, 2,000 UNIT PO DAILY, (Reported) Cyanocobalamin (Vitamin B-12) 5,000 Mcg Tab.rapdis, 5,000 MCG PO DAILY, ( Reported) Desvenlafaxine Succinate 100 Mg Tab.er.24h, 100 MG PO DAILY, (Reported) Hydrochlorothiazide 25 Mg Tablet, 25 MG PO DAILY, (Reported) Letrozole 2.5 Mg Tablet, 2.5 MG PO HS, (Reported) Metoprolol Succinate 25 Mg Tab.er.24h, 25 MG PO BID, (Reported) [place]-3/Dha/Epa/Fish Oil 1 Each Capsule.dr, 1 EACH PO BID, (Reported) Rosuvastatin Calcium 10 Mg Tablet, 10 MG PO DAILY, (Reported) Patient Home Medication List Home Medication List Reviewed: Yes Review of Systems Constitutional: see HPI EENTM: see HPI Respiratory: no symptoms reported Cardiovascular: no symptoms reported Genitourinary: no symptoms reported Musculoskeletal: see HPI Skin: no symptoms reported Psychiatric/Neurological: No Symptoms Reported Past Vakhvqi-Gzbjlf-Qvygum Hx Patient Social History Recent Foreign Travel: No Contact w/Someone Who Travel: No Recent Hopitalizations: No Immunizations Up To Date Date of Pneumonia Vaccine: Jan 17, 2012 Date of Influenza Vaccine: Dec 17, 2012 Seasonal Allergies Seasonal Allergies: Yes Past Medical History Gallbladder Hypertension Reproductive Disorders: No Polyps Arthritis Diabetes, Non-Insulin dep Breast Anxiety, PTSD, Depression Adverse Reaction/Blood Tranf: No Family Medical History Not obtainable due to adoption Physical Exam Vital Signs Vital Signs - First Documented 01/14/18 10:55 Temp 97.1 Pulse 77 Resp 18 B/P (MAP) 133/88 (103) Pulse Ox 99 Capillary Refill : Height, Weight, BMI Height: 5'4.00" Weight: 240lbs. 0.0oz. [id number]; 41.2 BMI Method: General Appearance: WD/WN, no apparent distress Neck: non-tender, full range of motion Respiratory: normal breath sounds, no respiratory distress, no accessory muscle use Gastrointestinal: non tender, soft Shoulder: normal inspection, non-tender Elbow/Forearm: normal inspection, non-tender, Left Wrist: Yes limited ROM, Yes pain, Yes soft tissue tenderness, Yes swelling Hand: normal inspection, non-tender, Left Neurologic/Psychiatric: alert, normal mood/affect, oriented x 3 Skin: normal color, warm/dry Progress/Results/Core Measures Results/Orders My Orders Orders - KURTIS CORTEZ APRN Wrist, Left, 3 Views Or More (01/14/18 10:45) Vital Signs/I&O 01/14/18 10:55 Temp 97.1 Pulse 77 Resp 18 B/P (MAP) 133/88 (103) Pulse Ox 99 Departure Impression Primary Impression: Left wrist sprain Qualified Codes: S63.502A - Unspecified sprain of left wrist, initial encounter Disposition: HOME, SELF-CARE Condition: Stable Departure-Patient Inst. Decision time for Depature: 11:36 Referrals: HARRISON TOMAS MD (PCP/Family) Primary Care Physician Patient Instructions: Wrist Sprain (DC) Add. Discharge Instructions: 11. Wear the splint as needed for pain control for the next 2-3 days until pain subsides. If you have persistent pain towards the end of next week call Dr. Tomas to make an appointment. You may need an MRI of the wrist. All discharge instructions reviewed with patient and/or family. Voiced understanding. KURTIS CORTEZ APRN Jan 14, 2018 11:03
--- NOTE | 2018-01-14 11:32 | Diagnostic Imaging Report ---
INDICATION: Injury, pain and weakness. FINDINGS: There are arthritic changes about the wrist most severe at the first CMC. No elton erosive element. There is no abnormal soft tissue calcification. No fracture or dislocation. No gas or foreign body. IMPRESSION: Arthritic changes but no acute appearing abnormality. Dictated by: Dictated on workstation # [id number]
[2018-01-14 11:48] VITALS: BP 133/88
== END 2018-01-14 11:47 | disposition home or self-care (01) ==
LOC: EDUNIT# 10:34 → ER 10:35
DX: S63.502A Unspecified sprain of left wrist, initial encounter (principal); I10 Essential (primary) hypertension; E11.9 Type 2 diabetes mellitus without complications; F41.9 Anxiety disorder, unspecified; F43.10 Post-traumatic stress disorder, unspecified; F32.9 Major depressive disorder, single episode, unspecified; Z86.010 Personal history of colon polyps; W13.8XXA Fall from, out of or through other building or structure, initial encounter
CPT/HCPCS: 73110

== ENCOUNTER 2018-01-23 12:53 | Outpatient (RCR) | payer MEDICARE, OTHER ==
[2018-01-19 09:58] LABS: BASOPHILS % (AUTO) 0 % (0-10); EOSINOPHILS % (AUTO) 0 % (0-10); HEMATOCRIT 38 % (35-52); HEMOGLOBIN 12.6 G/DL (11.5-16.0); LYMPHOCYTES # (AUTO) 1.9 X 10^3 (1.0-4.0); LYMPHOCYTES % (AUTO) 42 % (12-44); MEAN CORPUSCULAR HEMOGLOBIN 30 PG (25-34); MEAN CORPUSCULAR HGB CONC 33 G/DL (32-36); MEAN CORPUSCULAR VOLUME 92 FL (80-99); MEAN PLATELET VOLUME 9.8 FL (7.4-10.4); MONOCYTES # (AUTO) 0.3 X 10^3 (0.0-1.0); MONOCYTES % (AUTO) 7 % (0-12); NEUTROPHILS # (AUTO) 2.3 X 10^3 (1.8-7.8); NEUTROPHILS % (AUTO) 51 % (42-75); PLATELET COUNT 244 10^3/uL (130-400); RED CELL DISTRIBUTION WIDTH 15.6 % (10.0-14.5); WHITE BLOOD COUNT 4.5 10^3/uL (4.3-11.0)
[2018-01-19 10:20] LABS: ALANINE AMINOTRANSFERASE 26 U/L (0-55); ALBUMIN 4.1 GM/DL (3.2-4.5); ALKALINE PHOSPHATASE 52 U/L (40-136); BILIRUBIN,TOTAL 0.7 MG/DL (0.1-1.0); BUN/CREATININE RATIO 18; CALCIUM 9.7 MG/DL (8.5-10.1); CARBON DIOXIDE 26 MMOL/L (21-32); CHLORIDE 107 MMOL/L (98-107); CREATININE SERUM 0.83 MG/DL (0.60-1.30); GFR ESTIMATED > 60; GLUCOSE 119 MG/DL (70-105); POTASSIUM 3.7 MMOL/L (3.6-5.0); SODIUM 142 MMOL/L (135-145); TOTAL PROTEIN 6.9 GM/DL (6.4-8.2)
[~2018-01-23 12:53] MED LIST changes: -AMLO10TA6 PO; +AMLO10TA7 PO; +CHOL200014 PO; -CHOL200085 PO
== END 2018-04-19 | disposition home or self-care (01) ==
LOC: ONC 12:53
PROVIDERS: ATTEND Internal Medicine Hematology & Oncology
DX: C50.911 Malignant neoplasm of unspecified site of right female breast (principal); C50.912 Malignant neoplasm of unspecified site of left female breast; D64.9 Anemia, unspecified; I10 Essential (primary) hypertension; E66.01 Morbid (severe) obesity due to excess calories; Z68.41 Body mass index [BMI] 40.0-44.9, adult; E78.5 Hyperlipidemia, unspecified; K21.9 Gastro-esophageal reflux disease without esophagitis; M19.90 Unspecified osteoarthritis, unspecified site; Z17.0 Estrogen receptor positive status [ER+]; Z90.11 Acquired absence of right breast and nipple; Z90.12 Acquired absence of left breast and nipple; Z79.899 Other long term (current) drug therapy
CPT/HCPCS: 36415; 80053; 82728; 83540; 85025; 99213

== ENCOUNTER 2018-07-27 08:45 | Outpatient (RCR) | payer MEDICARE, OTHER ==
[2018-07-24 11:50] LABS: BASOPHILS % (AUTO) 0 % (0-10); EOSINOPHILS % (AUTO) 0 % (0-10); HEMATOCRIT 41 % (35-52); HEMOGLOBIN 13.4 G/DL (11.5-16.0); LYMPHOCYTES # (AUTO) 2.6 X 10^3 (1.0-4.0); LYMPHOCYTES % (AUTO) 43 % (12-44); MEAN CORPUSCULAR HEMOGLOBIN 31 PG (25-34); MEAN CORPUSCULAR HGB CONC 33 G/DL (32-36); MEAN CORPUSCULAR VOLUME 95 FL (80-99); MEAN PLATELET VOLUME 10.1 FL (7.4-10.4); MONOCYTES # (AUTO) 0.6 X 10^3 (0.0-1.0); MONOCYTES % (AUTO) 10 % (0-12); NEUTROPHILS # (AUTO) 2.8 X 10^3 (1.8-7.8); NEUTROPHILS % (AUTO) 47 % (42-75); PLATELET COUNT 257 10^3/uL (130-400); RED CELL DISTRIBUTION WIDTH 13.5 % (10.0-14.5)
[2018-07-24 12:08] LABS: ALANINE AMINOTRANSFERASE 35 U/L (0-55); ALBUMIN 4.2 GM/DL (3.2-4.5); ALKALINE PHOSPHATASE 55 U/L (40-136); BUN/CREATININE RATIO 15; CALCIUM 9.6 MG/DL (8.5-10.1); CARBON DIOXIDE 29 MMOL/L (21-32); CHLORIDE 106 MMOL/L (98-107); CREATININE SERUM 0.87 MG/DL (0.60-1.30); GFR ESTIMATED > 60; GLUCOSE 94 MG/DL (70-105); POTASSIUM 3.8 MMOL/L (3.6-5.0); SODIUM 144 MMOL/L (135-145)
[~2018-07-27 08:45] MED LIST changes: -ROSU10TA PO; +ROSU10TA22 PO
== END 2018-10-22 | disposition home or self-care (01) ==
LOC: ONC 08:45
PROVIDERS: ATTEND Internal Medicine Hematology & Oncology
DX: C50.911 Malignant neoplasm of unspecified site of right female breast (principal); C50.912 Malignant neoplasm of unspecified site of left female breast; D64.9 Anemia, unspecified; I10 Essential (primary) hypertension; E66.01 Morbid (severe) obesity due to excess calories; Z68.41 Body mass index [BMI] 40.0-44.9, adult; E78.5 Hyperlipidemia, unspecified; K21.9 Gastro-esophageal reflux disease without esophagitis; M19.90 Unspecified osteoarthritis, unspecified site; Z17.0 Estrogen receptor positive status [ER+]; Z90.11 Acquired absence of right breast and nipple; Z90.12 Acquired absence of left breast and nipple; Z79.899 Other long term (current) drug therapy
CPT/HCPCS: 36415; 80053; 82728; 83540; 85025; 99213

== ENCOUNTER 2019-01-25 08:47 | Outpatient (RCR) | payer MEDICARE, OTHER ==
[2019-01-22 13:55] LABS: BASOPHILS % (AUTO) 0 % (0-10); EOSINOPHILS % (AUTO) 0 % (0-10); HEMATOCRIT 38 % (35-52); HEMOGLOBIN 12.4 G/DL (11.5-16.0); LYMPHOCYTES # (AUTO) 2.4 X 10^3 (1.0-4.0); LYMPHOCYTES % (AUTO) 44 % (12-44); MEAN CORPUSCULAR HEMOGLOBIN 31 PG (25-34); MEAN CORPUSCULAR HGB CONC 33 G/DL (32-36); MEAN CORPUSCULAR VOLUME 97 FL (80-99); MEAN PLATELET VOLUME 10.1 FL (7.4-10.4); MONOCYTES # (AUTO) 0.4 X 10^3 (0.0-1.0); MONOCYTES % (AUTO) 8 % (0-12); NEUTROPHILS # (AUTO) 2.5 X 10^3 (1.8-7.8); NEUTROPHILS % (AUTO) 48 % (42-75); PLATELET COUNT 242 10^3/uL (130-400); RED CELL DISTRIBUTION WIDTH 13.5 % (10.0-14.5); WHITE BLOOD COUNT 5.3 10^3/uL (4.3-11.0)
[2019-01-22 14:20] LABS: ALANINE AMINOTRANSFERASE 32 U/L (0-55); ALBUMIN 3.9 GM/DL (3.2-4.5); ALKALINE PHOSPHATASE 52 U/L (40-136); BILIRUBIN,TOTAL 0.5 MG/DL (0.1-1.0); BUN/CREATININE RATIO 17; CARBON DIOXIDE 25 MMOL/L (21-32); CHLORIDE 107 MMOL/L (98-107); CREATININE SERUM 0.83 MG/DL (0.60-1.30); GFR ESTIMATED > 60; GLUCOSE 146 MG/DL (70-105); POTASSIUM 3.6 MMOL/L (3.6-5.0); SODIUM 142 MMOL/L (135-145); TOTAL PROTEIN 6.7 GM/DL (6.4-8.2)
[~2019-01-25 08:47] MED LIST changes: -METO-387 PO; +MTP25TSR PO
== END 2019-04-22 | disposition home or self-care (01) ==
LOC: ONC 08:47
PROVIDERS: ATTEND Internal Medicine Hematology & Oncology
DX: C50.812 Malignant neoplasm of overlapping sites of left female breast (principal); C50.911 Malignant neoplasm of unspecified site of right female breast; D63.0 Anemia in neoplastic disease; D50.0 Iron deficiency anemia secondary to blood loss (chronic); K21.9 Gastro-esophageal reflux disease without esophagitis; K57.92 Diverticulitis of intestine, part unspecified, without perforation or abscess without bleeding; I10 Essential (primary) hypertension; E66.01 Morbid (severe) obesity due to excess calories; E78.5 Hyperlipidemia, unspecified; M19.90 Unspecified osteoarthritis, unspecified site; Z90.710 Acquired absence of both cervix and uterus; Z90.49 Acquired absence of other specified parts of digestive tract; Z90.13 Acquired absence of bilateral breasts and nipples; Z79.899 Other long term (current) drug therapy
CPT/HCPCS: 36415; 80053; 82728; 83540; 85025; 99213

== ENCOUNTER 2020-01-21 13:35 | Outpatient (RCR) | payer MEDICARE, OTHER ==
[~2020-01-21 13:35] MED LIST changes: +AMLO-251 PO; -AMLO10TA7 PO; -LETR2.5T5 PO; +LETR2.5T6 PO
[2020-01-21 13:47] LABS: BASOPHILS % (AUTO) 0 % (0-10); EOSINOPHILS % (AUTO) 0 % (0-10); HEMATOCRIT 40 % (35-52); HEMOGLOBIN 13.2 g/dL (11.5-16.0); LYMPHOCYTES # (AUTO) 2.3 10^3/uL (1.0-4.0); LYMPHOCYTES % (AUTO) 41 % (12-44); MEAN CORPUSCULAR HEMOGLOBIN 32 pg (25-34); MEAN CORPUSCULAR HGB CONC 33 g/dL (32-36); MEAN CORPUSCULAR VOLUME 97 fL (80-99); MEAN PLATELET VOLUME 10.2 fL (9.0-12.2); MONOCYTES # (AUTO) 0.5 10^3/uL (0.0-1.0); MONOCYTES % (AUTO) 8 % (0-12); NEUTROPHILS # (AUTO) 2.9 10^3/uL (1.8-7.8); NEUTROPHILS % (AUTO) 50 % (42-75); PLATELET COUNT 248 10^3/uL (130-400); WHITE BLOOD COUNT 5.7 10^3/uL (4.3-11.0)
[2020-01-21 14:09] LABS: BILIRUBIN,TOTAL 0.9 MG/DL (0.1-1.0); CALCIUM 8.9 MG/DL (8.5-10.1); CREATININE SERUM 0.94 MG/DL (0.60-1.30); TOTAL PROTEIN 6.8 GM/DL (6.4-8.2)
== END 2020-03-28 13:46 | disposition home or self-care (01) ==
LOC: ONC 13:35
PROVIDERS: ATTEND Internal Medicine Hematology & Oncology
DX: C50.812 Malignant neoplasm of overlapping sites of left female breast (principal); C50.911 Malignant neoplasm of unspecified site of right female breast; D63.0 Anemia in neoplastic disease; D50.0 Iron deficiency anemia secondary to blood loss (chronic); K57.92 Diverticulitis of intestine, part unspecified, without perforation or abscess without bleeding; I10 Essential (primary) hypertension; E78.5 Hyperlipidemia, unspecified; M19.90 Unspecified osteoarthritis, unspecified site; Z90.710 Acquired absence of both cervix and uterus; Z90.49 Acquired absence of other specified parts of digestive tract; Z90.13 Acquired absence of bilateral breasts and nipples; Z79.899 Other long term (current) drug therapy
CPT/HCPCS: 80053; 82728; 83540; 85025

== ENCOUNTER 2020-02-06 08:28 | Emergency (ER) | payer MEDICARE, OTHER ==
[~2020-02-06] VITALS: Ht 160 cm; Wt 117.9 kg
[2020-02-06 08:45] VITALS: BP 148/96
--- NOTE | 2020-02-06 08:56 | ED Fall/Injury ---
General Stated Complaint: KNOT ON FOREHEAD Source: patient Exam Limitations: no limitations History of Present Illness Date Seen by Provider: Feb 06, 2020 Time Seen by Provider: 08:51 Initial Comments Patient is a 74-year-old female who presents to the emergency room today with a chief complaint of head injury. Patient states she was walking up some steps at her home when her toe caught. The edge of the step. Patient had a mechanical trip and fall striking her left side of her face on the railing and her head on the railing. Patient denies any loss of consciousness. She did not "see stars". Patient fell on her hands and knees. No complaints of injury to these areas. She feels well at this time. She did say that she had a significant headache at the time of injury and now the headache is localized just to the area of her scalp where she hit her head. Patient denies nausea and vomiting. She denies confusion. She denies visual changes. All other review of systems reviewed and negative except as stated above. Occurred: just prior to arrival () Severity: mild Injuries/Pain Location: head, face Context: tripped Loss of Consciousness: no loss of consciousness Associated Symptoms (Fall): Headache Allergies and Home Medications Allergies Coded Allergies: No Known Drug Allergies (Unverified , 08/05/12) Home Medications Amlodipine Besylate 10 Mg Tablet, 10 MG PO DAILY, (Reported) Cholecalciferol (Vitamin D3) 2,000 Unit Tablet, 2,000 UNIT PO DAILY, (Reported) Cyanocobalamin (Vitamin B-12) 5,000 Mcg Tab.rapdis, 5,000 MCG PO DAILY, (Reported) Desvenlafaxine Succinate 100 Mg Tab.er.24h, 100 MG PO DAILY, (Reported) Hydrochlorothiazide 25 Mg Tablet, 25 MG PO DAILY, (Reported) Letrozole 2.5 Mg Tablet, 2.5 MG PO HS, (Reported) Metoprolol Succinate 25 Mg Tab.er.24h, 25 MG PO BID, (Reported) [place]-3/Dha/Epa/Fish Oil 1 Each Capsule.dr, 1 EACH PO BID, (Reported) Rosuvastatin Calcium 10 Mg Tablet, 10 MG PO DAILY, (Reported) Patient Home Medication List Home Medication List Reviewed: Yes Review of Systems Review of Systems Constitutional: no symptoms reported Eyes: No Symptoms Reported Ears, Nose, Mouth, Throat: see HPI Respiratory: no symptoms reported Cardiovascular: no symptoms reported Gastrointestinal: no symptoms reported Genitourinary: no symptoms reported : No Musculoskeletal: no symptoms reported Skin: other (Abrasion noted to the left side of her face where her mask is sticking) All Other Systems Reviewed Negative Unless Noted: Yes Past Tvvvbpp-Rhhkyc-Wabmvb Hx Patient Social History Recent Foreign Travel: No Contact w/Someone Who Travel: No Recent Hopitalizations: No Immunizations Up To Date Date of Pneumonia Vaccine: Jan 17, 2012 Date of Influenza Vaccine: Dec 17, 2012 Seasonal Allergies Seasonal Allergies: Yes Past Medical History Surgeries: Yes (BLADDER SLING, GASTRIC SLEEVE,breast reduction, tummy tuck) Gallbladder Respiratory: No Cardiac: Yes Hypertension Neurological: No Reproductive Disorders: No Gastrointestinal: No Polyps Musculoskeletal: Yes Arthritis Endocrine: No Diabetes, Non-Insulin dep Cancer: Yes Breast Psychosocial: Yes Anxiety, PTSD, Depression Integumentary: No Blood Disorders: No Adverse Reaction/Blood Tranf: No Family Medical History Not obtainable due to adoption Physical Exam Vital Signs Capillary Refill : Height, Weight, BMI Height: 5'4.00" Weight: 245lbs. 0.0oz. 111.477246rf; 41.2 BMI Method:Stated General Appearance: WD/WN, no apparent distress HEENT: PERRL/EOMI, normal ENT inspection, TMs normal, pharynx normal, other (Patient has palpable contusion to the left frontoparietal scalp, tenderness to palpation) Neck: non-tender, full range of motion, supple, normal inspection Cardiovascular: regular rate, rhythm, no murmur Respiratory: chest non-tender, lungs clear, normal breath sounds, no respiratory distress, no accessory muscle use Gastrointestinal: normal bowel sounds, non tender, soft Extremities: normal range of motion, non-tender, normal inspection Neurologic/Psychiatric: shingle cutter II-XII nml as tested, no motor/sensory deficits, alert, normal mood/affect, oriented x 3 Skin: normal color, warm/dry, other (Small quarter sized abrasion noted to the left zygomatic area, no active bleeding) Bernard Coma Score Best Eye Response: (4) Open Spontaneously Best Verbal Response: (5) Oriented Best Motor Response: (6) Obeys Commands Progress/Results/Core Measures Progress Progress Note : Time: 09:03 Progress Note 74-year-old female presents to the emergency room with a chief complaint of mechanical trip and fall and head injury. Patient evaluation today includes a physical exam, overall the patient looks well, nontoxic appearing. No complaints of nausea, vomiting, vision changes, speech difficulties no peripheral numbness tingling or weakness. Patient has pain to the left scalp where she hit her head at the frontoparietal area as well as the left superior zygomomatic arch. Patient at this time does not have any indications for CT scan of the brain. She probably does have a mild concussion at this time. She has been counseled on concussion/head injury precautions. She verbalizes understanding. All questions are sought and answered and she is stable for discharge. Departure Impression Primary Impression: Head injury Qualified Codes: S09.90XA - Unspecified injury of head, initial encounter Additional Impression: Abrasion Disposition: 01 HOME, SELF-CARE Condition: Stable Departure-Patient Inst. Decision time for Depature: 09:06 Referrals: HARRISON NERI MD (PCP/Family) Primary Care Physician Patient Instructions: Minor Head Injury Add. Discharge Instructions: Apply Neosporin to the wound twice daily for couple of days. Head injury precautions including nausea vomiting, weakness, vision changes please return to the emergency room for reevaluation. Tylenol as needed for headache. Follow-up with your primary care doctor as needed. Copy Copies To 1: HARRISON NERI MD, KATHRYN M MD Feb 06, 2020 08:56
[2020-02-06] MEDS ORDERED: TETANUS,DIPTH,PERTUSS P/F (BOOSTRIX) 0.5 ML VIAL IM ONE (09:15)
== END 2020-02-06 09:41 | disposition home or self-care (01) ==
LOC: EDUNIT# 08:28 → ER 08:29
DX: S00.03XA Contusion of scalp, initial encounter (principal); S09.90XA Unspecified injury of head, initial encounter; I10 Essential (primary) hypertension; F32.9 Major depressive disorder, single episode, unspecified; Z85.3 Personal history of malignant neoplasm of breast; Z23 Encounter for immunization; W01.10XA Fall on same level from slipping, tripping and stumbling with subsequent striking against unspecified object, initial encounter
CPT/HCPCS: 90715; 99282

== ENCOUNTER 2020-04-08 09:28 | Outpatient (RCR) | payer MEDICARE, OTHER ==
[2020-04-08 09:37] LABS: BASOPHILS % (AUTO) 0 % (0-10); EOSINOPHILS % (AUTO) 0 % (0-10); HEMATOCRIT 41 % (35-52); HEMOGLOBIN 13.3 g/dL (11.5-16.0); LYMPHOCYTES # (AUTO) 2.5 10^3/uL (1.0-4.0); LYMPHOCYTES % (AUTO) 40 % (12-44); MEAN CORPUSCULAR HEMOGLOBIN 32 pg (25-34); MEAN CORPUSCULAR HGB CONC 33 g/dL (32-36); MEAN CORPUSCULAR VOLUME 97 fL (80-99); MEAN PLATELET VOLUME 10.3 fL (9.0-12.2); MONOCYTES # (AUTO) 0.4 10^3/uL (0.0-1.0); MONOCYTES % (AUTO) 7 % (0-12); NEUTROPHILS # (AUTO) 3.3 10^3/uL (1.8-7.8); NEUTROPHILS % (AUTO) 53 % (42-75); PLATELET COUNT 250 10^3/uL (130-400); WHITE BLOOD COUNT 6.4 10^3/uL (4.3-11.0)
[2020-04-08 10:04] LABS: BILIRUBIN,TOTAL 0.8 MG/DL (0.1-1.0); CALCIUM 9.1 MG/DL (8.5-10.1); CREATININE SERUM 0.94 MG/DL (0.60-1.30); POTASSIUM 3.6 MMOL/L (3.6-5.0)
== END 2020-07-07 | disposition home or self-care (01) ==
LOC: ONC 09:28
PROVIDERS: ATTEND Internal Medicine Hematology & Oncology
DX: C50.812 Malignant neoplasm of overlapping sites of left female breast (principal); C50.911 Malignant neoplasm of unspecified site of right female breast; D50.0 Iron deficiency anemia secondary to blood loss (chronic); K57.92 Diverticulitis of intestine, part unspecified, without perforation or abscess without bleeding; I10 Essential (primary) hypertension; E78.5 Hyperlipidemia, unspecified; M19.90 Unspecified osteoarthritis, unspecified site; Z90.710 Acquired absence of both cervix and uterus; Z90.49 Acquired absence of other specified parts of digestive tract; Z90.13 Acquired absence of bilateral breasts and nipples; Z79.899 Other long term (current) drug therapy
CPT/HCPCS: 80053; 82728; 83540; 85025; G0463; 99213

== ENCOUNTER 2021-04-07 10:28 | Outpatient (RCR) | payer MEDICARE, OTHER ==
[2021-03-31 11:32] LABS: BASOPHILS % (AUTO) 0 % (0-10); EOSINOPHILS % (AUTO) 0 % (0-10); HEMATOCRIT 43 % (35-52); HEMOGLOBIN 14.2 g/dL (11.5-16.0); LYMPHOCYTES # (AUTO) 3.2 10^3/uL (1.0-4.0); LYMPHOCYTES % (AUTO) 51 % (12-44); MEAN CORPUSCULAR HEMOGLOBIN 32 pg (25-34); MEAN CORPUSCULAR HGB CONC 33 g/dL (32-36); MEAN CORPUSCULAR VOLUME 98 fL (80-99); MEAN PLATELET VOLUME 10.6 fL (9.0-12.2); MONOCYTES # (AUTO) 0.5 10^3/uL (0.0-1.0); MONOCYTES % (AUTO) 8 % (0-12); NEUTROPHILS # (AUTO) 2.5 10^3/uL (1.8-7.8); NEUTROPHILS % (AUTO) 40 % (42-75); PLATELET COUNT 261 10^3/uL (130-400); WHITE BLOOD COUNT 6.3 10^3/uL (4.3-11.0)
[2021-03-31 11:57] LABS: ALBUMIN 4.1 GM/DL (3.2-4.5); BILIRUBIN,TOTAL 0.9 MG/DL (0.1-1.0); CALCIUM 9.3 MG/DL (8.5-10.1); CREATININE SERUM 0.86 MG/DL (0.60-1.30); POTASSIUM 3.9 MMOL/L (3.6-5.0)
[~2021-04-07 10:28] MED LIST changes: -CYAN50008 PO; +CYAN50009 PO
== END 2021-04-20 | disposition home or self-care (01) ==
LOC: ONC 10:28
PROVIDERS: ATTEND Internal Medicine Hematology & Oncology
DX: C50.912 Malignant neoplasm of unspecified site of left female breast (principal); C50.911 Malignant neoplasm of unspecified site of right female breast; D50.0 Iron deficiency anemia secondary to blood loss (chronic); K57.92 Diverticulitis of intestine, part unspecified, without perforation or abscess without bleeding; I10 Essential (primary) hypertension; E78.5 Hyperlipidemia, unspecified; M19.90 Unspecified osteoarthritis, unspecified site; K21.9 Gastro-esophageal reflux disease without esophagitis; E66.01 Morbid (severe) obesity due to excess calories; Z90.710 Acquired absence of both cervix and uterus; Z90.49 Acquired absence of other specified parts of digestive tract; Z90.13 Acquired absence of bilateral breasts and nipples; Z79.899 Other long term (current) drug therapy
CPT/HCPCS: 80053; 82728; 83540; 83550; 85025; 99213

== ENCOUNTER → 2021-08-24 | Outpatient (CLI) | payer MEDICARE, OTHER ==
--- NOTE | 2021-08-24 14:47 | Diagnostic Imaging Report ---
INDICATION: Hyperlipidemia, skin discoloration, hypertension.. TECHNIQUE: Segmental pulse pressures were performed of the upper and lower extremities. FINDINGS: Resting Doppler Blood Pressures RIGHT Brachial: 185 mmHg Ankle (Posterior Tibial): 186 mm Index: 1.01 Ankle (Dorsalis Pedis): 167 mm Hg Index: 0.90 LEFT Brachial: 174 mmHg Ankle (Posterior Tibial): 179 mm Hg Index: 0.97 Ankle (Dorsalis Pedis): 168 mm Hg Index: 0.91 IMPRESSION: Borderline abnormal ankle brachial indices as above. Ankle-Brachial Index Diagnosis/Interpretation <=0.90 Peripheral Arterial Disease 0.91-0.99 Borderline 1.00-1.40 Normal >1.40 Concern for noncompressible arteries, (assoc with Diabetes Mellitus) Dictated by: Dictated on workstation # [id number]
== END ==
LOC: RAD 13:55
PROVIDERS: ATTEND Nurse Practitioner Family
DX: E78.5 Hyperlipidemia, unspecified (principal); I10 Essential (primary) hypertension; L81.9 Disorder of pigmentation, unspecified
CPT/HCPCS: 93922

== ENCOUNTER 2022-03-05 12:51 | Outpatient (RCR) | payer MEDICARE, OTHER ==
[~2022-03-05 12:51] MED LIST changes: +NF-CRES10T PO; -ROSU10TA22 PO
[2022-03-05 13:13] LABS: BASOPHILS % (AUTO) 0 % (0-10); EOSINOPHILS % (AUTO) 0 % (0-10); HEMATOCRIT 40 % (35-52); HEMOGLOBIN 13.3 g/dL (11.5-16.0); LYMPHOCYTES # (AUTO) 2.8 10^3/uL (1.0-4.0); LYMPHOCYTES % (AUTO) 49 % (12-44); MEAN CORPUSCULAR HEMOGLOBIN 32 pg (25-34); MEAN CORPUSCULAR HGB CONC 33 g/dL (32-36); MEAN CORPUSCULAR VOLUME 97 fL (80-99); MEAN PLATELET VOLUME 10.2 fL (9.0-12.2); MONOCYTES # (AUTO) 0.4 10^3/uL (0.0-1.0); MONOCYTES % (AUTO) 7 % (0-12); NEUTROPHILS # (AUTO) 2.4 10^3/uL (1.8-7.8); NEUTROPHILS % (AUTO) 43 % (42-75); PLATELET COUNT 240 10^3/uL (130-400); WHITE BLOOD COUNT 5.6 10^3/uL (4.3-11.0)
[2022-03-05 13:40] LABS: ALBUMIN 4.1 GM/DL (3.2-4.5); BILIRUBIN,TOTAL 0.7 MG/DL (0.1-1.0); CALCIUM 9.3 MG/DL (8.5-10.1); CREATININE SERUM 1.01 MG/DL (0.60-1.30); POTASSIUM 3.3 MMOL/L (3.6-5.0); TOTAL PROTEIN 7.2 GM/DL (6.4-8.2)
== END 2022-03-20 | disposition home or self-care (01) ==
LOC: ONC 12:51
PROVIDERS: ATTEND Internal Medicine Hematology & Oncology
DX: C50.912 Malignant neoplasm of unspecified site of left female breast (principal); C50.911 Malignant neoplasm of unspecified site of right female breast; I10 Essential (primary) hypertension; E78.5 Hyperlipidemia, unspecified; M19.90 Unspecified osteoarthritis, unspecified site; K21.9 Gastro-esophageal reflux disease without esophagitis; E66.01 Morbid (severe) obesity due to excess calories; R10.9 Unspecified abdominal pain; Z90.710 Acquired absence of both cervix and uterus; Z90.49 Acquired absence of other specified parts of digestive tract; Z90.13 Acquired absence of bilateral breasts and nipples; Z79.899 Other long term (current) drug therapy
CPT/HCPCS: 36415; 80053; 82728; 83540; 83550; 85025

== ENCOUNTER 2022-03-31 13:15 | Outpatient (RCR) | payer MEDICARE, OTHER | END 2022-04-20 | disposition home or self-care (01) | LOC: ONC 13:15 | PROVIDERS: ATTEND Internal Medicine Hematology & Oncology | DX: C50.912 Malignant neoplasm of unspecified site of left female breast (principal); C50.911 Malignant neoplasm of unspecified site of right female breast; I10 Essential (primary) hypertension; E78.5 Hyperlipidemia, unspecified; M19.90 Unspecified osteoarthritis, unspecified site; K21.9 Gastro-esophageal reflux disease without esophagitis; E66.01 Morbid (severe) obesity due to excess calories; Z90.710 Acquired absence of both cervix and uterus; Z90.49 Acquired absence of other specified parts of digestive tract; Z90.13 Acquired absence of bilateral breasts and nipples; Z79.899 Other long term (current) drug therapy | CPT/HCPCS: 99213 ==